=== PATIENT | female | born 1930 | race Caucasian/White ===

== ENCOUNTER 2016-09-20 05:10 | Inpatient (IN) ==
[2016-09-20] MEDS ORDERED: ONDANSETRON 4 MG/2 ML VIAL IV STA (05:26)
[2016-09-20] MEDS ORDERED: NITROGLYCERIN 2% OINT 1 INCH/GM PACK TOP STA (05:26)
[2016-09-20] MEDS ORDERED: ENOXAPARIN 100 MG/ML SYRINGE SUBCUT STA (05:26)
[2016-09-20] MEDS ORDERED: ASPIRIN 325 MG TABLET PO STA (05:26)
[2016-09-20] MEDS ORDERED: SODIUM CHLORIDE 0.9% 500 ML IV STA (05:26)
--- NOTE | 2016-09-20 05:44 | Emergency Department Note ---
Piero Cesar Gwan, am scribing for, and in the presence of, Ricardo Canas MD 05:40. Missael Cesar Robert M, MD, personally performed the services described in this documentation, ascribed by Brian Harry in my presence, and it is both accurate and complete . Arrival - Arrival ED Nursing Triage Note: Patient to ED via EMS coming from home with c/o right sided CP that started around 0400. EMS reports patient has dementia and cannot disclose any additional s/s. Patient was given 324 ASA per family prior to EMS picking patient up. Patient had a fall 1 week ago and has bruising to right arm and right side of face. Mode of Arrival: Stretcher Limitations: No Limitations Source: Patient, Family, Old Records Reviewed, RN Notes Reviewed - History of Present Illness Onset (ago): hour(s) Consistency: constant Severity: moderate <Ricardo Canas - Last Filed: 09/20/16 05:56> <Thien Tamez - Last Filed: 09/20/16 07:45> - Arrival Chief Complaint: Chest Pain Stated Complaint: chest pain Time Seen by Provider: 09/20/16 05:26 - History of Present Illness HPI Narrative: Patient is a 86 y/o white female, with a hx of afib/CVA/CHF,who presents to the ED via EMS with a c/o right sided chest pain with an onset 0400 this morning. Her associated sxs have been SOB and clammy. Daughter noted that s/p onset of pt 's chest pain, she gave pt 4 ASA with some relief. EMS confirmed that pt has PHMx of dementia. Patient confirmed that her chest pain is located in the center of her chest. She denies any nausea or that her pain radiates to any other part of her body. Patient is followed by Dr. Anaya. Daughter continued to note that pt had a fall 1 week ago which resulted in bruising to her right arm and right side of her face. (Brian Harry) Patient is a 86 y/o white female, with a hx of afib/CVA/CHF,who presents to the ED via EMS with a c/o right sided chest pain with an onset 0400 this morning. Her associated sxs have been SOB and clammy. Daughter noted that s/p onset of pt 's chest pain, she gave pt 4 ASA with some relief. EMS confirmed that pt has PHMx of dementia. Patient confirmed that her chest pain is located in the center of her chest. She denies any nausea or that her pain radiates to any other part of her body. Patient is followed by Dr. Anaya. Daughter continued to note that pt had a fall 1 week ago which resulted in bruising to her right arm and right side of her face. (Ricardo Canas) Allergies/Adverse Reactions: Allergies Allergy/AdvReac Type Severity Reaction Status Date / Time codeine Allergy Unknown/Unable Verified 09/20/16 05:25 to obtain hydrocodone Allergy Unknown/Unable Verified 09/20/16 05:25 to obtain nalbuphine [From Nubain] Allergy Unknown/Unable Verified 09/20/16 05:25 to obtain pentazocine [From Talwin] Allergy Unknown/Unable Verified 09/20/16 05:25 to obtain Home Medications: Home Medications Medication Instructions Recorded Confirmed Type Citalopram [CeleXA] 20 mg PO BID 08/13/14 04/14/16 History Digoxin Tab [Lanoxin Tab] 0.125 mg PO DAILY 08/13/14 04/14/16 History Diltiazem Cd Cap [Cardizem Cd] 300 mg PO DAILY 08/13/14 04/14/16 History Donepezil [Aricept] 10 mg PO BEDTIME 08/13/14 04/14/16 History Furosemide Tab [Lasix Tab] 20 mg PO DAILY 08/13/14 04/14/16 History Isosorbide Mononitrate [Imdur] 60 mg PO DAILY 08/13/14 04/14/16 History Levothyroxine Tab [Synthroid Tab] 50 mcg PO DAILY 08/13/14 04/14/16 History Magnesium Chloride [Mag Delay] 64 mg PO TID 08/13/14 04/14/16 History Memantine [Namenda] 10 mg PO BID 08/13/14 04/14/16 History Metoprolol Succinate Xl [Toprol Xl] 50 mg PO DAILY 08/13/14 04/14/16 History Omeprazole [Prilosec] 20 mg PO DAILY 08/13/14 04/14/16 History Potassium Chloride Tab [K Dur] 20 meq PO DAILY 08/13/14 04/14/16 History Simvastatin [Zocor] 10 mg PO BEDTIME 08/13/14 04/14/16 History hydrALAZINE TAB [Apresoline Tab] 25 mg PO BID 08/13/14 04/14/16 History traZODone [Desyrel] 100 mg PO BEDTIME 08/13/14 04/14/16 History Warfarin [Coumadin] 3 mg PO DAILY 07/31/15 04/14/16 History Pantoprazole Tab [Protonix Tab] 40 mg PO DAILY #30 tablet 08/02/15 04/14/16 Rx Aspirin EC Tab 81 mg PO BEDTIME 10/27/15 04/14/16 History Review of System - Review of System 12 point system: reviewed and no additional remarkable complaints except as stated - Review of System Constitutional: Absent: chills, fever Eyes: Absent: discharge Head/Ears/Nose/Throat: Absent: earache Respiratory: Absent: cough Cardiovascular: Present: as per HPI, chest pain Gastrointestinal: Absent: abdominal pain, nausea, vomiting, diarrhea Genitourinary female: Absent: abnormal menses, dysuria Musculoskeletal: Absent: back pain, leg pain, neck pain Skin: Absent: rash, lesions Neurological: Absent: headache, weakness Psychiatric: Absent: anxiety, depression <Ricardo Canas - Last Filed: 09/20/16 05:56> Medical,Surgical,& Family Hx - Medical History Cardio: History of: Cardiac Dysrhythmia (AFIB), CHF, Hypertension, [place], Cardiovascular Problems (a-fib) Neurology: History of: Dementia Endocrine: History of: Dyslipidemia, Thyroid Disorder Gastrointestinal: History of: Diverticulitis/ Diverticulosis, GERD - Surgical History Neurologic Surgeries: Patient denies: Neurologic Surgery Abdominal Surgeries: Surgical HX of: Abdominal Surgery Reproductive Surgeries: Surgical HX of;: Hysterectomy Orthopedic Surgeries: Surgical HX of;: Orthopedic Surgery (bilateral knees) - Family History Family History: Reports;: Family Cancer (father-prostate), Family Diabetes ( mother) - Social History Smoking Status: Never smoker Frequency of Alcohol Use: None Type of Drug Use: None <Ricardo Canas - Last Filed: 09/20/16 05:56> Exam - General General appearance: alert, in no apparent distress - Head Head exam: Present: atraumatic, normocephalic - Eye Eye exam: Present: normal appearance, PERRL, EOMI - ENT ENT exam: Present: normal oropharynx, mucous membranes moist, TM's normal bilaterally, normal external ear exam - Neck Neck exam: Present: full ROM, trachea midline. Absent: tenderness - Chest Chest inspection: Present: symmetric chest wall rise. Absent: tenderness - Respiratory Respiratory exam: Present: normal lung sounds bilaterally. Absent: respiratory distress - Cardiovascular Cardiovascular exam: Present: bradycardia. Absent: regular rate - Abdominal Exam Abdominal exam: Present: soft, normal bowel sounds. Absent: distention, tenderness - Extremities Exam Extremities exam: Present: full ROM. Absent: tenderness - Back Exam Back exam: Present: full ROM. Absent: tenderness - Neurological Exam Neurological exam: Present: alert, oriented X3, CN II-XII intact. Absent: motor sensory deficit - Psychiatric Psychiatric exam: Present: normal affect, normal mood - Skin Skin exam: Present: warm, dry, intact, normal color <Ricardo Canas - Last Filed: 09/20/16 05:56> Vital Signs: Vital Signs Temperature 98.4 F 09/20/16 05:13 Pulse Rate 50 L 09/20/16 05:13 Respiratory Rate 20 09/20/16 05:46 Blood Pressure 139/109 09/20/16 05:13 O2 Sat by Pulse Oximetry 96 09/20/16 05:13 Course - Reevaluation(s) Time: 05:56 <Ricardo Canas - Last Filed: 09/20/16 05:56> <Thien Tamez - Last Filed: 09/20/16 07:45> Course Narrative: Patient discussed with Dr. Connor and the hospitalist. (Thien Tamez) - Reevaluation(s) Reevaluation #1: The patient was signed out to Dr. Ann Tamez in stable condition. (Ricardo Canas) Results - Labs CBC & BMP: 09/20/16 05:21 09/20/16 05:21 Lab Results: I have reviewed the patients labs - EKG EKG results: interpreted by RADHA (Atrial fibrillation with a right bundle branch block) - Diagnostic Findings Procedure: Chest x-ray: report reviewed by me (Stable cardiomegaly) <Thien Tamez - Last Filed: 09/20/16 07:45> Disposition <Ricardo Canas - Last Filed: 09/20/16 05:56> Case discussed with: patient, patient's family <Thien Tamez - Last Filed: 09/20/16 07:45> Clinical Impression: Chest pain, Bradycardia, Dementia Disposition: Still a Patient Condition: Guarded Additional Instructions: Admit to the hospitalist for cardiac monitoring. We will hold her beta-patrizia.
[2016-09-20 05:50] LABS: Basophils % 0.6 % (0.0-0.8); Eosinophils # 0.1 10*3/uL (0.0-0.87); Eosinophils % 1.9 % (0.00-10.9); Hematocrit 35.3 VOL% (35.7-47.0); Hemoglobin 11.2 GM/DL (12.0-16.0); Immature Granulocytes % 0.4 %; Immature Granulocytes Absolute 0.02 #; Lymphocytes # 1.3 10*3/uL (1.4-4.0); Lymphocytes % 28.7 % (21.3-54.2); Mean Corpuscular HGB Conc 31.7 GM/DL (32-36); Mean Corpuscular Hemoglobin 29 PG (27-34); Mean Corpuscular Volume 91.7 FL (87-102); Mean Platelet Volume 9.8 FL (9.6-12.0); Monocytes # 0.5 10*3/uL (0.11-0.8); Monocytes % 10.1 % (1.7-12.7); Neutrophils # 2.7 10*3/uL (1.4-7.4); Neutrophils % 58.3 % (38.7-73.9); Platelet Count 171 T/CUMM (130-400); Red Blood Count 3.85 MC/CUMM (3.8-5.5); Red Cell Distribution Width 15.9 % (9.3-17.3); White Blood Count 4.6 T/CUMM (4-12)
[2016-09-20] MEDS ORDERED: ONDANSETRON 4 MG/2 ML VIAL ONE (05:58)
[2016-09-20] MEDS ORDERED: ENOXAPARIN 60 MG/0.6 ML SYRINGE ONE (05:58)
[2016-09-20] MEDS ORDERED: NITROGLYCERIN 2% OINT 1 INCH/GM PACK TOP ONE (05:58)
[2016-09-20 06:04] LABS: Partial Thromboplastin Time 38.5 SECS (0-40)
[2016-09-20 06:08] LABS: INR 2.6
[2016-09-20 06:16] LABS: PT Patient Result 29.6 SECS
[2016-09-20 06:22] LABS: Apearance,Urine CLEAR (Clear); Bilirubin,Urine Negative (Negative); Blood, Urine Small mg/dL (Negative); Glucose,Urine (UA) Negative (Negative); Ketones,Urine Negative (Negative); Mucus,Urine Occasional /LPF (Occasional); Nitrite,Urine Negative (Negative); Protein,Urine Negative; RBC,Urine 2 /HPF (0-4); Squamous Epithelial Cell,Urine Occasional /HPF (0-10); Urine Color Straw (Yellow); Urine Specific Gravity 1.008 (1.001-1.035); Urine Urobilinogen < 2.0 EU/DL (0.2-1.0); WBC,Urine <1 /HPF (0-6)
[2016-09-20 06:27] LABS: Albumin 3.4 G/DL (3.4-5.0); Bilirubin,Total 0.5 MG/DL (0.2-1.0); Calcium 9.1 MG/DL (8.5-10.1); Magnesium 1.9 MG/DL (1.8-2.4); Osmolality,Calculated 281.1 MOS/KG (273-304); Potassium 3.5 MMOL/L (3.5-5.1); Total Protein 6.2 G/DL (6.4-8.3)
--- NOTE | 2016-09-20 07:20 | XRay Report ---
History: Chest pain Date: 09/20/2016 Study: Chest x-ray AP portable Comparison exam: April 14, 2016 There is continued mild cardiomegaly. The mediastinal contours are unchanged. There is mild ectasia and tortuosity of the thoracic aorta. The pulmonary vasculature is not engorged. The lungs are clear for shallow inspiration. There is no gross pleural effusion. There is suspected osteopenia. Impression: Stable cardiomegaly. No adverse interval change compared to the previous study. No definite acute process PROCEDURE INTERPRETED AT [facility] DEPARTMENT OF RADIOLOGY Final Report Signed by: Dr. Gillian Duran
--- NOTE | 2016-09-20 08:11 | Hospitalist History & Physical ---
<Aston Abreu - Last Filed: 09/20/16 09:07> Assessment and Plan (1) Bradycardia Status: Acute Assessment and plan: Admit to telemetry. Cardiac monitoring. Hold metoprolol and digoxin. Current Visit: Yes (2) Chest pain Status: Acute Assessment and plan: Admit to telemetry. Serial troponins and ekgs. Obtain echo. BMP/CBC. CXR shows stable cardiomegaly. Supplemental O2 as needed. Current Visit: Yes (3) Dementia Status: Chronic Current Visit: Yes Qualifiers: Dementia type: Alzheimer's disease (4) Dyslipidemia Status: Chronic Assessment and plan: Lipid panel in the am. Current Visit: Yes (5) History of atrial fibrillation Status: Chronic Current Visit: Yes History of Present Illness Chief complaint: Chest pain History of present illness: Ms. Langston is a 86 year old white female with a history of A. fib, angina, myocardial infarction, hypothyroidism, and dyslipidemia that presented to the ED today for further evaluation of chest pain. Patient is accompanied by her daughter who is present at the bedside. Patient is a poor historian with dementia so daughter provides much of her history. Per the daughter, the patient woke up this morning around 4:00 complaining of chest pain. Pt.'s daughter states patient pointed to the middle of her chest. Pt is unable to differeniate between the pain being sharp or dull. They called 911 and pt was given four 81 mg ASA before EMS arrived. On arrival to ED, patient was found to be bradycardiac with heart rates in the 40s. Pt. takes Metoprolol and prn Digoxin at home. Chest pain has resolved now in the ED but pt's case has been discussed with Dr. Mckenzie and pt. will be admitted to the hospitalist program for further eval and treatment. Home Medications Medication Instructions Recorded Confirmed Type Citalopram [CeleXA] 20 mg PO BID 08/13/14 09/20/16 History Digoxin Tab [Lanoxin Tab] 0.125 mg PO DAILY 08/13/14 09/20/16 History Diltiazem Cd Cap [Cardizem Cd] 300 mg PO DAILY 08/13/14 09/20/16 History Furosemide Tab [Lasix Tab] 20 mg PO DAILY 08/13/14 09/20/16 History Isosorbide Mononitrate [Imdur] 60 mg PO DAILY 08/13/14 09/20/16 History Levothyroxine Tab [Synthroid Tab] 50 mcg PO DAILY 08/13/14 09/20/16 History Magnesium Chloride [Mag Delay] 64 mg PO TID 08/13/14 09/20/16 History Metoprolol Succinate Xl [Toprol Xl] 50 mg PO DAILY 08/13/14 09/20/16 History Omeprazole [Prilosec] 20 mg PO DAILY 08/13/14 09/20/16 History Potassium Chloride Tab [K Dur] 20 meq PO DAILY 08/13/14 09/20/16 History Simvastatin [Zocor] 10 mg PO BEDTIME 08/13/14 09/20/16 History hydrALAZINE TAB [Apresoline Tab] 25 mg PO BID 08/13/14 09/20/16 History traZODone [Desyrel] 100 mg PO BEDTIME 08/13/14 09/20/16 History Warfarin [Coumadin] 3 mg PO DAILY 07/31/15 09/20/16 History Pantoprazole Tab [Protonix Tab] 40 mg PO DAILY #30 tablet 08/02/15 09/20/16 Rx Aspirin EC Tab 81 mg PO BEDTIME 10/27/15 09/20/16 History Donepezil HCl [Aricept] 23 mg PO DAILY 09/20/16 09/20/16 History Memantine [Namenda] 10 mg PO BID 09/20/16 09/20/16 History Allergies Allergy/AdvReac Type Severity Reaction Status Date / Time codeine Allergy Unknown/Unable Verified 09/20/16 05:25 to obtain hydrocodone Allergy Unknown/Unable Verified 09/20/16 05:25 to obtain nalbuphine [From Nubain] Allergy Unknown/Unable Verified 09/20/16 05:25 to obtain pentazocine [From Talwin] Allergy Unknown/Unable Verified 09/20/16 05:25 to obtain Medical,Surgical,& Family Hx - Medical History Cardio: History of: Cardiac Dysrhythmia (AFIB), CHF, Hypertension, [place], Cardiovascular Problems (a-fib) Neurology: History of: Dementia Endocrine: History of: Dyslipidemia, Thyroid Disorder Gastrointestinal: History of: Diverticulitis/ Diverticulosis, GERD - Surgical History Neurologic Surgeries: Patient denies: Neurologic Surgery Abdominal Surgeries: Surgical HX of: Abdominal Surgery Reproductive Surgeries: Surgical HX of;: Hysterectomy Orthopedic Surgeries: Surgical HX of;: Orthopedic Surgery (bilateral knees) - Family History Family History: Reports;: Family Cancer (father-prostate), Family Diabetes ( mother) - Social History Smoking Status: Never smoker Frequency of Alcohol Use: None Type of Drug Use: None Lives With:: Children Functional capacity: independent ambulation - Constitutional Constitutional: Absent: chills, fever(s) - EENT Eyes: Present: loss of vision, requires corrective lense Ears: Present: decreased hearing. Absent: ear discharge Nose, mouth and throat: Absent: dysphagia, headache(s) - Cardiovascular Cardiovascular: Present: chest pain at rest, dyspnea on exertion, edema. Absent : lightheadedness - Respiratory Respiratory: Present: dyspnea on exertion. Absent: cough - Gastrointestinal Gastrointestinal: Absent: abdominal pain, nausea, vomiting - Genitourinary Genitourinary: Absent: dysuria, urinary frequency - Musculoskeletal Musculoskeletal: Present: joint swelling - Neurological Neurological: Present: confusion, disequilibrium, frequent falls - Psychiatric Psychiatric: Present: confusion, depression - Hematologic/Lymphatic Hematologic/Lymphatic: Present: easy bruising Exam - Constitutional Vitals: Period Temp Pulse Resp BP Sys/Romero Pulse Ox Last 24 Hr 98.4 F-98.4 F 50-50 14-20 139-139/105-109 96 General appearance: normal weight, no acute distress - Head Head exam: Present: normal inspection, normocephalic - Eye Eye exam: Present: EOMI. Absent: scleral icterus Pupils: Present: TERESA. Absent: fixed - ENT ENT exam: Present: normal exam - Neck Neck exam: Present: normal inspection. Absent: thyromegaly - Respiratory Respiratory exam: Present: clear to auscultation bilaterally. Absent: wheezes - Cardiovascular Cardiovascular exam: Present: bradycardia - GI/Abdominal GI/Abdominal exam: Present: normal bowel sounds, soft. Absent: tenderness - Extremities Exam Extremities exam: Present: normal capillary refill, full ROM, edema - Neurological Exam Neurological exam: Present: alert, oriented X3, other (pt does have dementia) - Psychiatric Psychiatric exam: Present: normal affect, normal mood - Skin Skin exam: Present: normal color, warm, dry Results - Labs CBC & BMP: 09/20/16 05:21 09/20/16 05:21 Lab Results: I have reviewed the past 24 hour labs <Rashida Mckenzie Last Filed: 09/20/16 11:53> Assessment and Plan (1) Bradycardia Status: Acute Current Visit: Yes (2) Chest pain Status: Acute Current Visit: Yes (3) Dementia Status: Chronic Assessment and plan: Need a correct list of her medications. Current Visit: Yes Qualifiers: Dementia type: Alzheimer's disease (4) Afib Status: Chronic Assessment and plan: Hold digoxin and metoprolol due to bradycardia Current Visit: No History of Present Illness History of present illness: Patient seen and examined. History and physical reviewed and edited. CODE STATUS was discussed with patient's daughter and she wants her to be a DNR. Daughter is not interested in her mother receiving a pacemaker at this time. Her chest pain sounds atypical and most likely secondary to GERD. Patient has advanced dementia. Medical,Surgical,& Family Hx - Social History Marital Status: Exam - Constitutional Vitals: Period Temp Pulse Resp BP Sys/Romero Pulse Ox Last 24 Hr 98.4 F-98.7 F 50-64 14-20 139-152/71-109 93-97 Results - Labs CBC & BMP: 09/20/16 05:21 09/20/16 05:21 - EKG EKG shows: atrial fibrillation (With intraventricular conduction delay) - Diagnostic Findings Procedure: Chest x-ray: report reviewed by me (Nothing acute)
[2016-09-20] MEDS ORDERED: MAGNESIUM SULF RIDER 2 GM in PREMIX 1 EACH IV PRN (09:36)
[2016-09-20] MEDS ORDERED: BISACODYL 5 MG TABLET PO PRN (09:36)
[2016-09-20] MEDS ORDERED: ONDANSETRON 4 MG/2 ML VIAL IV PRN (09:36)
[2016-09-20] MEDS ORDERED: ENOXAPARIN 40 MG/0.4 ML SYRINGE SUBCUT SCH (09:36)
[2016-09-20] MEDS ORDERED: POTASSIUM CHLORIDE 20 MEQ TABLET PO PRN (09:36)
[2016-09-20] MEDS ORDERED: ZALEPLON 5 MG CAPSULE PO PRN (09:36)
[2016-09-20] MEDS ORDERED: MAGNESIUM SULF RIDER 4 GM in PREMIX 1 EACH IV PRN (09:36)
[2016-09-20] MEDS ORDERED: MAGNESIUM HYDROXIDE SUSP 30 ML UDCUP PO PRN (09:36)
[2016-09-20] MEDS ORDERED: SODIUM CHLORIDE 0.45% 1,000 ML IV SCH (09:36)
[2016-09-20] MEDS: ASPIRIN EC 81 MG TABLET PO SCH ×2 (09:39→21:14)
--- NOTE | 2016-09-20 09:40 | EKG Report ---
Stationary ECG Study [facility] ER Test Date: 09/20/2016 5:25:28 AM Pat Name: DEVYN GONZALEZ Department: Room: 289 Gender: F Cashier General: EVA : 1930 Requested by: Ricardo Canas Order Number: [id number] Reading MD: WILLIAM JAVIER Intervals [place] Rate: 58 P: 999 HI: 0 QRS: 13 QRSD: 188 T: 23 QT: 520 QTc: 517 Interpretive Statements ATRIAL FIBRILLATION RIGHT BUNDLE BRANCH BLOCK Electronically Signed On 09-20-16 16:29:43 CDT by WILLIAM JAVIER [email or web address]
--- NOTE | 2016-09-20 09:50 | EKG Report ---
Stationary ECG Study [facility] Test Date: 09/20/2016 9:50:33 AM Pat Name: DEVYN GONZALEZ Department: Room: 289 Gender: F Load Blocker: ROSS : 1930 Requested by: Rashida Roach Order Number: [id number] Reading MD: LINDA WALDEN Intervals [place] Rate: 51 P: 999 NV: 0 QRS: 197 QRSD: 186 T: 28 QT: 513 QTc: 490 Interpretive Statements ATRIAL FIBRILLATION WITH SLOW VENTRICULAR RESPONSE INDETERMINATE AXIS RIGHT BUNDLE BRANCH BLOCK Electronically Signed On 09-22-16 15:25:22 CDT by LINDA WALDEN [email or web address]
--- NOTE | 2016-09-20 12:47 | EKG Report ---
Stationary ECG Study [facility] Test Date: 09/20/2016 12:47:34 PM Pat Name: DEVYN GONZALEZ Department: Room: 289 Gender: F Utility Worker: : 1930 Requested by: Rashida Roach Order Number: [id number] Reading MD: LINDA WALDEN Intervals [place] Rate: 48 P: 999 CO: 0 QRS: 187 QRSD: 185 T: 70 QT: 519 QTc: 487 Interpretive Statements ATRIAL FIBRILLATION WITH SLOW VENTRICULAR RESPONSE MARKED RIGHT AXIS DEVIATION RIGHT BUNDLE BRANCH BLOCK Electronically Signed On 09-22-16 15:31:57 CDT by LINDA WALDEN [email or web address]
[2016-09-20] MEDS: LOSARTAN 50 MG TABLET PO SCH (14:02)
[2016-09-20] MEDS: MEMANTINE 10 MG TABLET PO SCH ×2 (14:02→21:15)
[2016-09-20] MEDS: LEVOTHYROXINE 50 MCG TABLET PO SCH (14:03)
[2016-09-20] MEDS: FAMOTIDINE 20 MG TABLET PO SCH ×2 (14:03→21:15)
--- NOTE | 2016-09-20 15:45 | ECHO Report ---
Mell Langston Exam Date: 09/20/2016 10:15 Referring Physician: Technologist: Annmarie Lai Age: 86 Ht (in): 65 Wt (lb): 140 Gender: F Exam [facility]: [facility] Echo Indications: chest pain, sob BP: 152 / 88 HR: 64 Rhythm: A fib Technical Quality: IMPRESSIONS There is mild concentric left ventricular hypertrophy ejection fraction 60-65%. Diastolic parameters are equivocal the patient is in atrial fibrillation. There is no regional wall motion abnormality. Mild aortic valve regurgitation. Tricuspid regurgitation velocities suggest a RVSP of 59 mmHg plus the right atrial pressure. MModerate mitral valve regurgitation that is central. There is moderate posterior mitral annular calcification with no demonstrable mitral stenosis Biatrial enlargement MEASUREMENTS (Male / Female) Normal Values 2D ECHO LV Diastolic Diameter PLAX 3.2 cm 4.2 - 5.9 / 3.9 - 5.3 cm LV Systolic Diameter PLAX 2.1 cm LV Fractional Shortening PLAX 34.4 % IVS Diastolic Thickness 1.5 cm 0.6 - 1.0 / 0.6 - 0.9 cm LVPW Diastolic Thickness 1.5 cm 0.6 - 1.0 / 0.6 - 0.9 cm RV Internal Dim ED PLAX 3.0 cm Aortic Root Diameter 2.7 cm LA Systolic Diameter LX 3.5 cm 3.0 - 4.0 / 2.7 - 3.8 cm DOPPLER TR Peak Velocity 384.0 cm/s TR Peak Gradient 59.0 mmHg FINDINGS Left Ventricle There is mild concentric left ventricular hypertrophy ejection fraction 60-65%. Diastolic parameters are equivocal the patient is in atrial fibrillation. There is no regional wall motion abnormality. Right Ventricle Normal right ventricular size. Right Atrium Moderately increased right atrial size. Left Atrium Moderately increased left atrial size. Mitral Valve Mild mitral valve sclerosis. Moderate mitral valve regurgitation that is central. There is moderate posterior mitral annular calcification with no demonstrable mitral stenosis Aortic Valve Moderate aortic valve calcification. Mild aortic valve regurgitation. The pressure halftime is greater than 670 msec. Tricuspid Valve Morphologically normal tricuspid valve. Moderate tricuspid valve regurgitation. Tricuspid regurgitation velocities suggest a RVSP of 59 mmHg plus the right atrial pressure. Pulmonic Valve Morphologically normal pulmonic valve. Trace pulmonary valve regurgitation. Pericardium No pericardial effusion. Aorta Normal size aortic root and proximal ascending aorta. Alisson Anaya (Electronically Signed) Final Date: 20 September 2016 15:44
[2016-09-20] MEDS: WARFARIN 3 MG TABLET PO SCH (18:21)
[2016-09-20] MEDS: ATORVASTATIN 20 MG TABLET PO SCH (21:15)
[2016-09-20] MEDS: SIMVASTATIN 10 MG TABLET PO SCH (21:15)
[2016-09-20] MEDS: traZODone 50 MG TABLET PO SCH (21:15)
[2016-09-20] MEDS: hydrALAZINE 25 MG TABLET PO SCH (21:15)
[2016-09-21] MEDS: LABETALOL 20 MG/4 ML SYRINGE IV PRN ×2 (00:36→04:29)
--- NOTE | 2016-09-21 04:21 | EKG Report ---
Stationary ECG Study [facility] Test Date: 09/20/2016 3:09:25 PM Pat Name: DEVYN GONZALEZ Department: Room: 289 Gender: F Set Up Operator: : 1930 Requested by: Rashida Roach Order Number: [id number] Reading MD: LINDA WALDEN Intervals [place] Rate: 57 P: 999 [place]: 0 QRS: 185 QRSD: 182 T: 29 QT: 478 QTc: 472 Interpretive Statements ATRIAL FIBRILLATION MARKED RIGHT AXIS DEVIATION RIGHT BUNDLE BRANCH BLOCK Electronically Signed On 09-22-16 16:05:52 CDT by LINDA WALDEN [email or web address]
[2016-09-21 08:39] LABS: Risk Ratio 2.67; VLDL CHOLESTEROL 21.4 MG/DL
[2016-09-21] MEDS: CITALOPRAM 20 MG TABLET PO SCH (09:00)
[2016-09-21] MEDS: ISOSORBIDE MONONITRATE 60 MG TABLET PO SCH (09:00)
[2016-09-21] MEDS: MEMANTINE 10 MG TABLET PO SCH ×2 (09:00→20:06)
[2016-09-21] MEDS: hydrALAZINE 25 MG TABLET PO SCH ×2 (09:00→20:06)
[2016-09-21] MEDS ORDERED: FUROSEMIDE 20 MG TABLET PO SCH (09:00)
[2016-09-21] MEDS: FAMOTIDINE 20 MG TABLET PO SCH ×2 (09:00→20:06)
[2016-09-21] MEDS: LEVOTHYROXINE 50 MCG TABLET PO SCH (09:00)
[2016-09-21] MEDS ORDERED: ARICEPT 23 MG PO SCH (09:00)
[2016-09-21] MEDS: ASPIRIN EC 81 MG TABLET PO SCH ×2 (09:00→20:06)
[2016-09-21] MEDS: LOSARTAN 50 MG TABLET PO SCH (09:00)
[2016-09-21] MEDS ORDERED: ALPRAZolam 0.5 MG TABLET PO ONE (12:18)
--- NOTE | 2016-09-21 12:28 | Cardiology Consult Note ---
Assessment and Plan - Time spent with patient Time spent with patient: Greater than 30 minutes (exam, chart review, discussion with family and documentation) (1) Falls frequently Status: Acute Assessment and plan: This just started about 1 week ago but she has fallen 2 times in the last week. No clear syncope but I am very suspicious. AV ebony agents have been held. Current Visit: Yes (2) Afib Status: Chronic Assessment and plan: probably will eventually require PPM. 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 Current Visit: No Qualifiers: Atrial fibrillation type: permanent Qualified Code(s): I48.2 - Chronic atrial fibrillation (3) Dementia Status: Chronic Current Visit: Yes Qualifiers: Dementia type: Alzheimer's disease (4) Bradycardia Status: Acute Assessment and plan: will likely need PPM Current Visit: Yes (5) Dyslipidemia Status: Chronic Current Visit: Yes History of Present Illness - Data of Consult Patient: known to practice within the last 3 years Consult date: 09/21/16 Requesting Physician: Rashida Mckenzie - Consult Narrative Reason for consult: Bradycardia History of present illness: Ms. Langston is a 86 year old female well known to me. She has a history of mild cardiomyopathy she also has a history of persistent or permanent atrial fibrillation. Now she has progressive dementia. She is admitted to the hospitalist service her digoxin and metoprolol were held because of bradycardia last night she received an IV dose of labetalol and then during the night she had a heart rate down into the 30s. The patient is unable to give any meaningful history because of her advanced dementia. Her daughter is at the bedside and states that a few days ago and her sister's house the patient fell. Initially her daughter states that it was witnessed but did not tell me that her sister was only able to tell me that she "heard her fall." She went into the room and she was awake at that time on the floor. She is also fallen another time when she "just sat down" between the chair and the garbage can. This daughter states that she did not have syncope at that time. The patient has no recollection of either 1 of these episodes. She has obvious large area of ecchymosis on the right frontal region with ecchymosis extending down into the lateral aspect of her eye into her cheekbone. The patient is not oriented but is alert and eating lunch when I saw her. She is scheduled to go for an MRI at this time. I discussed with her briefly about the possibility of a pacemaker and she seemed to be acceptable without by saying "whatever you need to do." CC: Rashida Mckenzie MD - Home Medications and Allergies Home Medications: Home Medications Medication Instructions Recorded Confirmed Type Citalopram [CeleXA] 20 mg PO BID 08/13/14 09/20/16 History Digoxin Tab [Lanoxin Tab] 0.125 mg PO DAILY 08/13/14 09/20/16 History Diltiazem Cd Cap [Cardizem Cd] 300 mg PO DAILY 08/13/14 09/20/16 History Furosemide Tab [Lasix Tab] 20 mg PO DAILY 08/13/14 09/20/16 History Isosorbide Mononitrate [Imdur] 60 mg PO DAILY 08/13/14 09/20/16 History Levothyroxine Tab [Synthroid Tab] 50 mcg PO DAILY 08/13/14 09/20/16 History Magnesium Chloride [Mag Delay] 64 mg PO TID 08/13/14 09/20/16 History Metoprolol Succinate Xl [Toprol Xl] 50 mg PO DAILY 08/13/14 09/20/16 History Omeprazole [Prilosec] 20 mg PO DAILY 08/13/14 09/20/16 History Potassium Chloride Tab [K Dur] 20 meq PO DAILY 08/13/14 09/20/16 History Simvastatin [Zocor] 10 mg PO BEDTIME 08/13/14 09/20/16 History hydrALAZINE TAB [Apresoline Tab] 25 mg PO BID 08/13/14 09/20/16 History traZODone [Desyrel] 100 mg PO BEDTIME 08/13/14 09/20/16 History Warfarin [Coumadin] 3 mg PO DAILY 07/31/15 09/20/16 History Pantoprazole Tab [Protonix Tab] 40 mg PO DAILY #30 tablet 08/02/15 09/20/16 Rx Aspirin EC Tab 81 mg PO BEDTIME 10/27/15 09/20/16 History Donepezil HCl [Aricept] 23 mg PO DAILY 09/20/16 09/20/16 History Memantine [Namenda] 10 mg PO BID 09/20/16 09/20/16 History Allergies/Adverse Reactions: Allergies Allergy/AdvReac Type Severity Reaction Status Date / Time codeine Allergy Unknown/Unable Verified 09/20/16 05:25 to obtain hydrocodone Allergy Unknown/Unable Verified 09/20/16 05:25 to obtain nalbuphine [From Nubain] Allergy Unknown/Unable Verified 09/20/16 05:25 to obtain pentazocine [From Talwin] Allergy Unknown/Unable Verified 09/20/16 05:25 to obtain ROS unobtainable: due to dementia Medical,Surgical,& Family Hx - Medical History Cardio: History of: Cardiac Dysrhythmia (AFIB, permanent), Hypertension, [place], Cardiovascular Problems (a-fib) Neurology: History of: Dementia Endocrine: History of: Dyslipidemia, Thyroid Disorder Gastrointestinal: History of: Diverticulitis/ Diverticulosis, GERD - Surgical History Neurologic Surgeries: Patient denies: Neurologic Surgery Abdominal Surgeries: Surgical HX of: Abdominal Surgery Reproductive Surgeries: Surgical HX of;: Hysterectomy Orthopedic Surgeries: Surgical HX of;: Orthopedic Surgery (bilateral knees) - Family History Family History: Reports;: Family Cancer (father-prostate), Family Diabetes ( mother) - Social History Smoking Status: Never smoker Frequency of Alcohol Use: None Type of Drug Use: None Marital Status: Lives With:: Children Functional capacity: independent ambulation Physical Examination Vital Signs Temp Pulse Resp BP Pulse Ox 98.4 F 50 L 14 139/105 96 09/20/16 05:13 09/20/16 05:13 09/20/16 05:13 09/20/16 05:13 09/20/16 05:13 General: Present: Appears Well, Other (She is thin and frail) HEENT: Present: Other (ecchymosis on the right frontal/parietal region that tracts down over the side of her face/head) Neck: Present: Supple Neck Cardiac: Present: Irregularly Regular, S1/S2 Lungs: Present: Normal Exam Neuro: Present: Cranial Nerve 2-12 Intact, Motor Function Intact Abdomen: Present: Soft, Active Bowel Sounds, No Masses, No Pulsations/Bruits Skin: Present: Bruising Musculoskeletal: Present: No Fluid Collection, No Pain, Normal Range of Motion Gait: Present: Normal Gait Extremities: Absent: Edema Result/EKG - Labs CBC & BMP: 09/20/16 05:21 09/20/16 05:21 Labs: Laboratory Results - last 24 hr 09/20/16 09/20/16 09/21/16 12:49 15:55 07:31 Troponin I < 0.015 < 0.015 Triglycerides 107 Cholesterol 147 LDL Cholesterol 81.0 VLDL Cholesterol 21.4 HDL Cholesterol 55 Heart Disease Risk Ratio 2.67 - EKG EKG results: interpreted by me EKG shows: atrial fibrillation (strips also reviewed)
--- NOTE | 2016-09-21 13:49 | Magnetic Resonance Report ---
MRI brain without contrast Indication: Ataxia Comparison: None available Technique: Axial sagittal and coronal imaging of the brain is performed without contrast. T1, T2, FLAIR and diffusion weighted sequences are performed. Findings: No evidence of restricted diffusion seen. No evidence of intracranial hemorrhage, mass, mass effect or midline shift is seen. There is severe diffuse cerebral atrophy. There are areas of white matter T2 signal hyperintensity in both cerebral hemispheres, mostly periventricular in location likely related to chronic microvascular changes. Remaining brain parenchyma has normal signal and differentiation. The ventricles and cisterns are appropriate in caliber. Posterior fossa, mid brain and pituitary gland appear within normal limits. No evidence of cranial or skull base abnormality seen. Impression: No evidence of acute infarct or acute process demonstrated. PROCEDURE INTERPRETED AT [facility] DEPARTMENT OF RADIOLOGY Final Report Signed by: Dr. Luis Antonio Solis
--- NOTE | 2016-09-21 16:43 | Hospitalist Progress Note ---
Assessment and Plan (1) Bradycardia Status: Acute Assessment and plan: may need pacer. will monitor for now Current Visit: Yes (2) Chest pain Status: Acute Assessment and plan: serial troponins negative Current Visit: Yes (3) Dementia Status: Chronic Assessment and plan: cont namenda and aricept Current Visit: Yes Qualifiers: Dementia type: Alzheimer's disease (4) Afib Status: Chronic Assessment and plan: monitor for now, dig and dilt on hold Current Visit: No Qualifiers: Atrial fibrillation type: permanent Qualified Code(s): I48.2 - Chronic atrial fibrillation Hospitalist: Subjective Interval history: tachy/bruce. Dr. Anaya discussed with about pacer. Exam - Constitutional Vitals: Period Temp Pulse Resp BP Sys/Romero Pulse Ox Last 24 Hr 96.6 F-97.9 F 63-99 16-18 116-178/63-107 93-98 Exam: Heart Rate-[tachy] Lungs-[CTAB] GI-[+bs soft, NT] Ext-[no edema] Neuro [Motor 5/5], agitated and demented psych agitated mood and affect] General [no acute distress] Results - Labs CBC & BMP: 09/20/16 05:21 09/20/16 05:21 Lab Results: I have reviewed the past 24 hour labs - Diagnostic Findings Procedure: MRI: report reviewed by me (no acute infarct )
[2016-09-21 17:10] LABS: Free T4 (Free Thyroxine) 1.17 NG/DL (0.76-1.46); Thyroid Stimulating Hormone 2.56 uIU/ml (0.358-3.74)
[2016-09-21] MEDS: WARFARIN 3 MG TABLET PO SCH (17:43)
[2016-09-21] MEDS: ATORVASTATIN 20 MG TABLET PO SCH (20:06)
[2016-09-21] MEDS: traZODone 50 MG TABLET PO SCH (20:06)
[2016-09-21] MEDS: SIMVASTATIN 10 MG TABLET PO SCH (20:06)
[2016-09-22 05:33] LABS: Basophils % 0.4 % (0.0-0.8); Eosinophils # 0.1 10*3/uL (0.0-0.87); Eosinophils % 0.9 % (0.00-10.9); Hematocrit 33.5 VOL% (35.7-47.0); Hemoglobin 10.7 GM/DL (12.0-16.0); Immature Granulocytes % 0.4 %; Immature Granulocytes Absolute 0.04 #; Lymphocytes # 1.3 10*3/uL (1.4-4.0); Lymphocytes % 14.9 % (21.3-54.2); Mean Corpuscular HGB Conc 31.9 GM/DL (32-36); Mean Corpuscular Hemoglobin 29 PG (27-34); Mean Corpuscular Volume 90.3 FL (87-102); Monocytes # 0.9 10*3/uL (0.11-0.8); Monocytes % 9.6 % (1.7-12.7); Neutrophils # 6.7 10*3/uL (1.4-7.4); Neutrophils % 73.8 % (38.7-73.9); Platelet Count 171 T/CUMM (130-400); Red Blood Count 3.71 MC/CUMM (3.8-5.5); Red Cell Distribution Width 15.6 % (9.3-17.3)
[2016-09-22 05:48] LABS: PT Patient Result 33.8 SECS
[2016-09-22 06:07] LABS: Calcium 8.7 MG/DL (8.5-10.1); Magnesium 1.8 MG/DL (1.8-2.4); Osmolality,Calculated 277.4 MOS/KG (273-304); Potassium 3.8 MMOL/L (3.5-5.1)
--- NOTE | 2016-09-22 07:34 | EKG Report ---
Stationary ECG Study [facility] Test Date: 09/22/2016 7:33:58 AM Pat Name: DEVYN GONZALEZ Department: Room: 289 Gender: F Processing Mgr: ROSS : 1930 Requested by: Yonathan Rivero Order Number: [id number] Reading MD: JAZMINE VIVAR Intervals [place] Rate: 86 P: 999 TX: 0 QRS: 240 QRSD: 168 T: 74 QT: 429 QTc: 472 Interpretive Statements ATRIAL FIBRILLATION INDETERMINATE AXIS RIGHT BUNDLE BRANCH BLOCK AND POSSIBLE RIGHT VENTRICULAR HYPERTROPHY Electronically Signed On 09-23-16 08:08:34 CDT by JAZMINE VIVAR [email or web address]
[2016-09-22] MEDS: hydrALAZINE 25 MG TABLET PO SCH ×2 (09:24→21:28)
[2016-09-22] MEDS: LOSARTAN 50 MG TABLET PO SCH (09:24)
[2016-09-22] MEDS: CITALOPRAM 20 MG TABLET PO SCH (09:24)
[2016-09-22] MEDS: ISOSORBIDE MONONITRATE 60 MG TABLET PO SCH (09:24)
[2016-09-22] MEDS: LEVOTHYROXINE 50 MCG TABLET PO SCH (09:25)
[2016-09-22] MEDS: MEMANTINE 10 MG TABLET PO SCH ×2 (09:25→21:23)
[2016-09-22] MEDS: FAMOTIDINE 20 MG TABLET PO SCH ×2 (09:25→21:23)
[2016-09-22] MEDS ORDERED: PIPERACILLIN/TAZOBACTAM 3,375 MG in SODIUM CHLORIDE 0.9% 100 ML IV SCH (10:30)
--- NOTE | 2016-09-22 10:39 | Cardiology Progress Note ---
<Natalie Marques - Last Filed: 09/22/16 10:09> Assessment and Plan (1) Bradycardia Status: Resolved Assessment and plan: SEE PLAN OF CARE LISTED BELOW. Current Visit: Yes (2) Falls frequently Status: Acute Assessment and plan: SEE PLAN OF CARE LISTED BELOW. Current Visit: Yes (3) Dementia Status: Chronic Assessment and plan: SEE PLAN OF CARE LISTED BELOW. Current Visit: Yes Qualifiers: Dementia type: Alzheimer's disease (4) Dyslipidemia Status: Chronic Assessment and plan: SEE PLAN OF CARE LISTED BELOW. Current Visit: Yes (5) Afib Status: Chronic Assessment and plan: SEE PLAN OF CARE LISTED BELOW. Current Visit: No Qualifiers: Atrial fibrillation type: permanent Qualified Code(s): I48.2 - Chronic atrial fibrillation Cardiology - PN: Subj Interval history: [place]ogs[place] Hand: Dr. Anaya SUMMARY - Mrs. Langston, 86 year old female with history of mild cardiomyopathy, persistent or permanent atrial fibrillation and progressive dementia. She is admitted to the hospitalist service. Her digoxin and metoprolol were held upon admission because of bradycardia. However, she received an IV dose of labetalol and then later that night she had a heart rate down into the 30s. Cardiology was consulted to further evaluate patient's bradycardia. September UPDATE - Patient was seen and examined on the telemetry unit. She has done reasonably well overnight. Digoxin and metoprolol were held yesterday. Patient has had no further bradycardic episodes. However, with activity she has experienced RVR. Her telemetry has been reviewed, it appears that she had an episode of RVR with heart rates in the 140s last night. At this point, I will further discuss with Dr. 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 I will await his further recommendations. ASSESSMENT/PLAN: 1. BRADYCARDIA - This is most likely secondary to the IV dose of labetalol that she received as patient's heart rates are now ranging in the 80s and 90s after digoxin and metoprolol were put on hold. However, she does have RVR with activity. After reviewing her telemetry, it appears that she had an episode of RVR with heart rates in the 140s last night. At this point, I will further discuss with Dr. 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 I will await his recommendations. 2. ATRIAL FIBRILLATION - Remains in atrial fibrillation, now rate controlled. Continue warfarin for anticoagulation. INR today 3.0. Daily INR. 3. DYSLIPIDEMIA - Continue current plan of care with lipid lowering agent. 4. DEMENTIA - Continue current plan of care. 5. FALLS FREQUENTLY - She has fallen 2 times in the last week. Exam (Progress Note) - Constitutional Vitals: Period Temp Pulse Resp BP Sys/Romero Pulse Ox Last 24 Hr 97.6 F-100.7 F 82-99 16-20 132-148/78-95 93-98 Exam: General: Appears well with no apparent distress. Pleasant and cooperative. Thin and frail. HEENT: PERRL, normocephalic, atraumatic. Mucous membranes moist. No jaundice noted. Conjunctiva moist and clear, sclerae anicteric Neck: No JVD/HJR, no thyromegaly or lymphadenopathy noted. No carotid bruit appreciated Cardiac: Irregular rhythm, rate controlled. No murmur rub or gallop. Lungs: Clear to auscultation without accessory muscle use to assist the respiratory pattern. Not requiring oxygen. Abdomen: Soft, bowel sounds normoactive. Nontender and nondistended. No abdominal bruit or thrill noted. No masses noted. Extremities: No clubbing, cyanosis noted. No edema noted. Capillary refill less than 3 seconds. Skin: Large bruise noted to frontal/parietal region that tracts down over the side of her face. Neuro: Awake, alert and oriented 3. Moves all extremities well without hemiparesis or paralysis. No essential tremor is appreciated. Result/EKG - Labs CBC & BMP: 09/22/16 05:07 09/22/16 05:07 Lab Results: I have reviewed the past 24 hour labs Labs: Laboratory Results - last 24 hr 09/21/16 09/22/16 09/22/16 07:30 05:07 05:07 WBC 9.0 D RBC 3.71 L Hgb 10.7 L Hct 33.5 L MCV 90.3 MCH 29 MCHC 31.9 L RDW 15.6 Plt Count 171 MPV 10.0 Neut % (Auto) 73.8 Lymph % (Auto) 14.9 L [place] % (Auto) 9.6 Eos % (Auto) 0.9 Baso % (Auto) 0.4 Neut # (Auto) 6.7 Lymph # (Auto) 1.3 L [place] # (Auto) 0.9 H Eos # (Auto) 0.1 Baso # (Auto) 0.0 Immature Gran % 0.4 Nucleated RBC % 0.0 Immature Gran # 0.04 Nucleated RBCs # 0.00 INR 3.0 PT Patient/Control Mix 33.8 Sodium Potassium Chloride Carbon Dioxide Anion Gap BUN Creatinine GFR Calculation BUN/Creatinine Ratio Glucose Calculated Osmolality Calcium Magnesium Free T4 1.17 TSH 3rd Generation 2.560 09/22/16 05:07 WBC RBC Hgb Hct MCV MCH MCHC RDW Plt Count MPV Neut % (Auto) Lymph % (Auto) [place] % (Auto) Eos % (Auto) Baso % (Auto) Neut # (Auto) Lymph # (Auto) [place] # (Auto) Eos # (Auto) Baso # (Auto) Immature Gran % Nucleated RBC % Immature Gran # Nucleated RBCs # INR PT Patient/Control Mix Sodium 140 Potassium 3.8 Chloride 99 Carbon Dioxide 36 H Anion Gap 8.8 BUN 9 Creatinine 0.90 GFR Calculation 57 BUN/Creatinine Ratio 10.00 Glucose 94 Calculated Osmolality 277.4 Calcium 8.7 Magnesium 1.8 Free T4 TSH 3rd Generation <Alisson Anaya - Last Filed: 09/22/16 15:09> Assessment and Plan (1) Falls frequently Status: Acute Current Visit: Yes (2) Afib Status: Chronic Assessment and plan: Heart rate back up overnight now well controlled 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 Current Visit: No Qualifiers: Atrial fibrillation type: permanent Qualified Code(s): I48.2 - Chronic atrial fibrillation (3) Dementia Status: Chronic Current Visit: Yes Qualifiers: Dementia type: Alzheimer's disease (4) Bradycardia Status: Resolved Current Visit: Yes (5) Dyslipidemia Status: Chronic Current Visit: Yes Cardiology - PN: Subj Interval history: Ms. Langston had her AV ebony blockade agents held and her heart rate is increased. She also has fever and apparent cellulitis her right upper extremity for which she is receiving vancomycin. 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 She certainly may require pacemaker at some point but will hold for now especially to large infection clears. Exam (Progress Note) - Constitutional Vitals: Period Temp Pulse Resp BP Sys/Romero Pulse Ox Last 24 Hr 97.6 F-100.7 F 82-99 16-20 94-148/60-95 93-98 Exam: Right is much better. Result/EKG - Labs CBC & BMP: 09/22/16 05:07 09/22/16 05:07 Labs: Laboratory Results - last 24 hr 09/21/16 09/22/16 09/22/16 07:30 05:07 05:07 WBC 9.0 D RBC 3.71 L Hgb 10.7 L Hct 33.5 L MCV 90.3 MCH 29 MCHC 31.9 L RDW 15.6 Plt Count 171 MPV 10.0 Neut % (Auto) 73.8 Lymph % (Auto) 14.9 L [place] % (Auto) 9.6 Eos % (Auto) 0.9 Baso % (Auto) 0.4 Neut # (Auto) 6.7 Lymph # (Auto) 1.3 L [place] # (Auto) 0.9 H Eos # (Auto) 0.1 Baso # (Auto) 0.0 Immature Gran % 0.4 Nucleated RBC % 0.0 Immature Gran # 0.04 Nucleated RBCs # 0.00 INR 3.0 PT Patient/Control Mix 33.8 Sodium Potassium Chloride Carbon Dioxide Anion Gap BUN Creatinine GFR Calculation BUN/Creatinine Ratio Glucose Calculated Osmolality Calcium Magnesium Free T4 1.17 TSH 3rd Generation 2.560 09/22/16 05:07 WBC RBC Hgb Hct MCV MCH MCHC RDW Plt Count MPV Neut % (Auto) Lymph % (Auto) [place] % (Auto) Eos % (Auto) Baso % (Auto) Neut # (Auto) Lymph # (Auto) [place] # (Auto) Eos # (Auto) Baso # (Auto) Immature Gran % Nucleated RBC % Immature Gran # Nucleated RBCs # INR PT Patient/Control Mix Sodium 140 Potassium 3.8 Chloride 99 Carbon Dioxide 36 H Anion Gap 8.8 BUN 9 Creatinine 0.90 GFR Calculation 57 BUN/Creatinine Ratio 10.00 Glucose 94 Calculated Osmolality 277.4 Calcium 8.7 Magnesium 1.8 Free T4 TSH 3rd Generation
[2016-09-22] MEDS ORDERED: METOPROLOL TARTRATE 25 MG TABLET PO SCH (11:30)
--- NOTE | 2016-09-22 11:47 | Hospitalist Progress Note ---
Assessment and Plan (1) Bradycardia Status: Resolved Assessment and plan: Jonathan/Tachy, Hold coumadin, metoprolol 25 mg po bid Current Visit: Yes (2) Chest pain Status: Acute Assessment and plan: serial troponins negative Current Visit: Yes (3) Dementia Status: Chronic Assessment and plan: cont namenda and aricept Current Visit: Yes Qualifiers: Dementia type: Alzheimer's disease (4) Afib Status: Chronic Assessment and plan: low dose metoprolol Current Visit: No Qualifiers: Atrial fibrillation type: permanent Qualified Code(s): I48.2 - Chronic atrial fibrillation (5) Right arm cellulitis Status: Acute Assessment and plan: vancomycin, warm compresses, blood cx Current Visit: Yes Hospitalist: Subjective Interval history: Patient went in to be atrial fib with rapid ventricular response. Given the patient has problems with bradycardia we will start back a low-dose of metoprolol. Have notified Puja Early from Cardiology. Patient also had infiltration of her IV on her right arm resulting in severe cellulitis this morning. I started her on vancomycin. Patient not quite significant early this morning which is contributing to her tachycardia. Exam - Constitutional Vitals: Period Temp Pulse Resp BP Sys/Romero Pulse Ox Last 24 Hr 97.6 F-100.7 F 82-99 16-20 132-148/78-95 93-98 Exam: Heart Rate-[tachy] Lungs-[CTAB] GI-[+bs soft, NT] Ext-[severe erythema and swelling of right arm Neuro [Motor 5/5], agitated and demented psych agitated mood and affect] General [no acute distress] Results - Labs CBC & BMP: 09/22/16 05:07 09/22/16 05:07 Lab Results: I have reviewed the past 24 hour labs
[2016-09-22] MEDS: VANCOMYCIN INJ 1,000 MG in SODIUM CHLORIDE 0.9% 250 ML IV SCH (13:33)
[2016-09-22] MEDS: ASPIRIN EC 81 MG TABLET PO SCH (21:23)
[2016-09-22] MEDS: traZODone 50 MG TABLET PO SCH (21:23)
[2016-09-22] MEDS: SIMVASTATIN 10 MG TABLET PO SCH (21:23)
[2016-09-22] MEDS: ATORVASTATIN 20 MG TABLET PO SCH (21:23)
[2016-09-23] MEDS: VANCOMYCIN INJ 1,000 MG in SODIUM CHLORIDE 0.9% 250 ML IV SCH ×2 (02:34→13:33)
[2016-09-23 04:44] LABS: Basophils % 0.4 % (0.0-0.8); Eosinophils # 0.1 10*3/uL (0.0-0.87); Eosinophils % 1.4 % (0.00-10.9); Hemoglobin 10.6 GM/DL (12.0-16.0); Immature Granulocytes % 0.4 %; Immature Granulocytes Absolute 0.03 #; Lymphocytes # 1.4 10*3/uL (1.4-4.0); Lymphocytes % 19.6 % (21.3-54.2); Mean Corpuscular HGB Conc 32.1 GM/DL (32-36); Mean Corpuscular Hemoglobin 29 PG (27-34); Mean Corpuscular Volume 90.2 FL (87-102); Mean Platelet Volume 9.9 FL (9.6-12.0); Monocytes # 0.8 10*3/uL (0.11-0.8); Monocytes % 11.7 % (1.7-12.7); Neutrophils # 4.8 10*3/uL (1.4-7.4); Neutrophils % 66.5 % (38.7-73.9); Platelet Count 159 T/CUMM (130-400); Red Blood Count 3.66 MC/CUMM (3.8-5.5); Red Cell Distribution Width 15.9 % (9.3-17.3); White Blood Count 7.2 T/CUMM (4-12)
[2016-09-23 05:10] LABS: Calcium 9.4 MG/DL (8.5-10.1); Magnesium 1.9 MG/DL (1.8-2.4); Osmolality,Calculated 281.1 MOS/KG (273-304); Potassium 3.3 MMOL/L (3.5-5.1)
[2016-09-23 08:15] LABS: INR 2.1
[2016-09-23] MEDS: MEMANTINE 10 MG TABLET PO SCH ×2 (08:25→22:21)
[2016-09-23] MEDS: FAMOTIDINE 20 MG TABLET PO SCH ×2 (08:25→22:22)
[2016-09-23] MEDS: LOSARTAN 50 MG TABLET PO SCH (08:25)
[2016-09-23] MEDS: hydrALAZINE 25 MG TABLET PO SCH ×2 (08:25→22:20)
[2016-09-23] MEDS: ISOSORBIDE MONONITRATE 60 MG TABLET PO SCH (08:25)
[2016-09-23] MEDS: POTASSIUM CHLORIDE 20 MEQ TABLET PO PRN ×2 (08:25→10:28)
[2016-09-23] MEDS: CITALOPRAM 20 MG TABLET PO SCH (08:25)
[2016-09-23] MEDS: LEVOTHYROXINE 50 MCG TABLET PO SCH (08:25)
[2016-09-23 08:28] LABS: PT Patient Result 23.8 SECS
--- NOTE | 2016-09-23 09:27 | Cardiology Progress Note ---
Assessment and Plan (1) Bradycardia Status: Resolved Assessment and plan: SEE PLAN OF CARE LISTED BELOW. Current Visit: Yes (2) Falls frequently Status: Acute Assessment and plan: SEE PLAN OF CARE LISTED BELOW. Current Visit: Yes (3) Dementia Status: Chronic Assessment and plan: SEE PLAN OF CARE LISTED BELOW. Current Visit: Yes Qualifiers: Dementia type: Alzheimer's disease (4) Dyslipidemia Status: Chronic Assessment and plan: SEE PLAN OF CARE LISTED BELOW. Current Visit: Yes (5) Afib Status: Chronic Assessment and plan: SEE PLAN OF CARE LISTED BELOW. Current Visit: No Qualifiers: Atrial fibrillation type: permanent Qualified Code(s): I48.2 - Chronic atrial fibrillation (6) Right arm cellulitis Status: Acute Assessment and plan: SEE PLAN OF CARE LISTED BELOW Current Visit: Yes (7) Hypokalemia Status: Acute Assessment and plan: SEE PLAN OF CARE LISTED BELOW. Current Visit: Yes Cardiology - PN: Subj Interval history: Etl Architect: Dr. Anaya SUMMARY - Mrs. Langston, 86 year old female with history of mild cardiomyopathy, persistent or permanent atrial fibrillation and progressive dementia. She is admitted to the hospitalist service. Her digoxin and metoprolol were held upon admission because of bradycardia. However, she received an IV dose of labetalol and then later that night she had a heart rate down into the 30s. Cardiology was consulted to further evaluate patient's bradycardia. SEPTEMBER 23 UPDATE - Patient was seen and examined on the telemetry unit. She has done reasonably well overnight. Lopressor 25 mg was reinitiated yesterday. Early this morning, patient did have episode of bradycardia with long pauses. Lopressor has now been discontinued. No further RVR has been noted per telemetry. I have discussed with Dr. Anaya. Patient will require pacemaker this hospitalization as she is developing tachybradycardia syndrome. This can be performed within the next 24-48 hours once her cellulitis improves. Continue IV antibiotics. Vital signs are stable. Labs been reviewed. ASSESSMENT/PLAN: 1. BRADYCARDIA - Patient had recurrent episode of bradycardia with long pauses early this morning after Lopressor 25 mg was initiated yesterday. Lopressor has now been held. It appears that patient is developing tachybradycardia syndrome and will require pacemaker placement this hospitalization once her cellulitis stabilizes. At this point, we will continue to hold her AV ebony blocking agents and anticipate pacemaker the next 24-48 hours. I will await Dr. Anaya additional recommendations. 2. ATRIAL FIBRILLATION - Remains in atrial fibrillation, now rate controlled. Coumadin currently on hold. Will continue to hold as we are anticipating pacemaker in the next 24-48 hours. INR today 2.1. Daily INR. 3. DYSLIPIDEMIA - Continue current plan of care with lipid lowering agent. 4. DEMENTIA - Continue current plan of care. 5. FALLS FREQUENTLY - She has fallen 2 times in the last week. 6. CELLULITIS - Continue antibiotics. 7. HYPOKALEMIA - Replaced per protocol. Exam (Progress Note) - Constitutional Vitals: Period Temp Pulse Resp BP Sys/Romero Pulse Ox Last 24 Hr 96.9 F-100.0 F 71-99 16-20 94-150/60-97 93-97 Exam: General: Appears well with no apparent distress. Pleasant and cooperative. Thin and frail. HEENT: PERRL, normocephalic, atraumatic. Mucous membranes moist. No jaundice noted. Conjunctiva moist and clear, sclerae anicteric Neck: No JVD/HJR, no thyromegaly or lymphadenopathy noted. No carotid bruit appreciated Cardiac: Irregular rhythm, rate controlled. No murmur rub or gallop. Lungs: Clear to auscultation without accessory muscle use to assist the respiratory pattern. Not requiring oxygen. Abdomen: Soft, bowel sounds normoactive. Nontender and nondistended. No abdominal bruit or thrill noted. No masses noted. Extremities: No clubbing, cyanosis noted. Capillary refill less than 3 seconds. Erythema and swelling noted to right upper extremity. Skin: Large bruise noted to frontal/parietal region that tracts down over the side of her face. Neuro: Awake, alert and oriented 3. Moves all extremities well without hemiparesis or paralysis. No essential tremor is appreciated. Result/EKG - Labs CBC & BMP: 09/23/16 03:57 09/23/16 03:57 Lab Results: I have reviewed the past 24 hour labs Labs: Laboratory Results - last 24 hr 09/23/16 09/23/16 09/23/16 03:57 03:57 07:58 WBC 7.2 RBC 3.66 L Hgb 10.6 L Hct 33.0 L MCV 90.2 MCH 29 MCHC 32.1 RDW 15.9 Plt Count 159 MPV 9.9 Neut % (Auto) 66.5 Lymph % (Auto) 19.6 L [place] % (Auto) 11.7 Eos % (Auto) 1.4 Baso % (Auto) 0.4 Neut # (Auto) 4.8 Lymph # (Auto) 1.4 [place] # (Auto) 0.8 Eos # (Auto) 0.1 Baso # (Auto) 0.0 Immature Gran % 0.4 Nucleated RBC % 0.0 Immature Gran # 0.03 Nucleated RBCs # 0.00 INR 2.1 PT Patient/Control Mix 23.8 D Sodium 142 Potassium 3.3 L Chloride 104 Carbon Dioxide 33 H Anion Gap 8.3 BUN 12 Creatinine 0.60 GFR Calculation 82 BUN/Creatinine Ratio 20.00 Glucose 88 Calculated Osmolality 281.1 Calcium 9.4 Magnesium 1.9
[2016-09-23] MEDS ORDERED: POTASSIUM CHLORIDE 20 MEQ TABLET PO PRN (10:03)
[2016-09-23] MEDS ORDERED: WARFARIN 2.5 MG TABLET PO SCH (11:21)
--- NOTE | 2016-09-23 11:23 | Hospitalist Progress Note ---
Assessment and Plan (1) Bradycardia Status: Resolved Assessment and plan: Bruce/Tachy, restart Coumadin 2.5, hold metoprolol due to cardiac pauses. Discussed with Dr. Anaya and he will put pacemaker again when she is afebrile for 24 hours. Current Visit: Yes (2) Chest pain Status: Acute Assessment and plan: serial troponins negative Current Visit: Yes (3) Dementia Status: Chronic Assessment and plan: cont namenda and aricept Current Visit: Yes Qualifiers: Dementia type: Alzheimer's disease (4) Afib Status: Chronic Assessment and plan: unable to tolerate any meds Current Visit: No Qualifiers: Atrial fibrillation type: permanent Qualified Code(s): I48.2 - Chronic atrial fibrillation (5) Right arm cellulitis Status: Acute Assessment and plan: vancomycin, warm compresses, blood cx pending, looks much better today Current Visit: Yes Hospitalist: Subjective Interval history: Patient had only low-grade fever overnight. Right arm looks much better. Beta- patrizia had to be held due to cardiac pauses up to [address] Anaya and he would like to put a pacemaker in when she is been afebrile for 24 hours. Exam - Constitutional Vitals: Period Temp Pulse Resp BP Sys/Romero Pulse Ox Last 24 Hr 96.9 F-100.0 F 71-99 16-20 94-150/60-97 93-97 Exam: Heart Rate-[bruce] Lungs-[CTAB] GI-[+bs soft, NT] Ext-cellulitis of her right arm looks much better Neuro [Motor 5/5], agitated and demented psych agitated mood and affect] General [no acute distress] Results - Labs CBC & BMP: 09/23/16 03:57 09/23/16 03:57 Lab Results: I have reviewed the past 24 hour labs - Diagnostic Findings Procedure: MRI: report reviewed by me (No evidence of acute infarct)
[2016-09-23] MEDS: POLYETHYLENE GLYCOL POWDER 17 GM PACK PO SCH (15:12)
[2016-09-23] MEDS: DESITIN 4OZ/NYSTATIN 15 GRAM MIXTURE PASTE TOP SCH ×2 (15:12→22:22)
[2016-09-23] MEDS: ASPIRIN EC 81 MG TABLET PO SCH (22:21)
[2016-09-23] MEDS: ATORVASTATIN 20 MG TABLET PO SCH (22:21)
[2016-09-23] MEDS: traZODone 50 MG TABLET PO SCH (22:21)
[2016-09-23] MEDS: SIMVASTATIN 10 MG TABLET PO SCH (22:22)
[2016-09-24] MEDS: VANCOMYCIN INJ 1,000 MG in SODIUM CHLORIDE 0.9% 250 ML IV SCH ×2 (02:41→14:45)
[2016-09-24 05:50] LABS: Basophils % 0.5 % (0.0-0.8); Eosinophils # 0.1 10*3/uL (0.0-0.87); Eosinophils % 1.9 % (0.00-10.9); Hematocrit 35.9 VOL% (35.7-47.0); Hemoglobin 11.4 GM/DL (12.0-16.0); Immature Granulocytes % 1.1 %; Immature Granulocytes Absolute 0.07 #; Lymphocytes # 1.3 10*3/uL (1.4-4.0); Lymphocytes % 20.1 % (21.3-54.2); Mean Corpuscular HGB Conc 31.8 GM/DL (32-36); Mean Corpuscular Hemoglobin 29 PG (27-34); Mean Corpuscular Volume 90.7 FL (87-102); Mean Platelet Volume 10.2 FL (9.6-12.0); Monocytes # 0.7 10*3/uL (0.11-0.8); Monocytes % 11.1 % (1.7-12.7); Neutrophils # 4.1 10*3/uL (1.4-7.4); Neutrophils % 65.3 % (38.7-73.9); Platelet Count 179 T/CUMM (130-400); Red Blood Count 3.96 MC/CUMM (3.8-5.5); Red Cell Distribution Width 15.9 % (9.3-17.3); White Blood Count 6.2 T/CUMM (4-12)
[2016-09-24 06:11] LABS: Calcium 9.7 MG/DL (8.5-10.1); Osmolality,Calculated 281.1 MOS/KG (273-304); Potassium 3.9 MMOL/L (3.5-5.1)
[2016-09-24 09:02] LABS: INR 1.6; PT Patient Result 17.6 SECS
[2016-09-24] MEDS: CITALOPRAM 20 MG TABLET PO SCH (09:10)
[2016-09-24] MEDS: hydrALAZINE 25 MG TABLET PO SCH ×2 (09:10→21:01)
[2016-09-24] MEDS: LOSARTAN 50 MG TABLET PO SCH (09:10)
[2016-09-24] MEDS: ISOSORBIDE MONONITRATE 60 MG TABLET PO SCH (09:10)
[2016-09-24] MEDS: POLYETHYLENE GLYCOL POWDER 17 GM PACK PO SCH (09:11)
[2016-09-24] MEDS: MEMANTINE 10 MG TABLET PO SCH ×2 (09:11→21:03)
[2016-09-24] MEDS: LEVOTHYROXINE 50 MCG TABLET PO SCH (09:11)
[2016-09-24] MEDS: FAMOTIDINE 20 MG TABLET PO SCH ×2 (09:11→21:03)
[2016-09-24] MEDS: DESITIN 4OZ/NYSTATIN 15 GRAM MIXTURE PASTE TOP SCH ×2 (09:12→21:27)
[2016-09-24] MEDS ORDERED: POTASSIUM CHLORIDE 20 MEQ TABLET PO ONE (09:36)
--- NOTE | 2016-09-24 09:42 | Discharge Summary ---
<Dionte Walter - Last Filed: 09/25/16 08:43> Hospital Course - Hospital Course Hospital Course: Ms. Langston is a 86-year-old white female with a history of atrial fibrillation, CVA, CHF who was admitted through the [facility] on 09/20/2016 with complaints of right-sided chest pain. Echocardiogram on admission revealed mild concentric left ventricular hypertrophy with ejection fraction approximately 60- 65%, mild mitral valve sclerosis, and moderate aortic valve calcification. EKG on admission revealed atrial fibrillation with marked right axis deviation and right bundle branch block. Chest x-ray showed stable cardiomegaly. Patient was admitted to the hospital medicine service and placed on telemetry unit for close observation and further treatment. Patient was bradycardic on admission and metoprolol and digoxin were held. Cardiology was consulted to assist with the care of this patient. She was found to have episodes of atrial fibrillation with RVR with rates in the 140s and was thought to have a component of tachybradycardia syndrome. It was noted that at some point the patient may require pacemaker, however, given that the patient was being treated with vancomycin for right arm cellulitis this intervention was postponed. Patient continued to have a low-grade fever while on vancomycin however the cellulitis continued to improve. On 09/23/2016, patient was found to have 4 second pauses for which her ebony blocking agents were held. However she was also found to have tachycardia when getting up to go to the restroom. It became quite clear that the patient has tachybradycardia syndrome and was in need of pacemaker placement. On 09/24/2016, Dr. Neely proceeded with placement of a single-chamber permanent pacemaker via percutaneous left subclavian venotomy with sheath placement. Of note this pacemaker is MRI compatible. The patient tolerated procedure well and is recovering as expected. She experienced no significant spikes in her heart rate overnight and is stable for discharge at this time. She is to follow-up with cardiology and her PCP in 1-[address] Anaya next . She will need 5 more days of clindamycin. Patient seen and examined. Hospital course reviewed and edited. Discharge Plan - Discharge Data Disposition: Home Health Service - Discharge Medications New Losartan [Cozaar] 50 mg PO DAILY #30 tablet Atorvastatin [Lipitor] 20 mg PO BEDTIME #30 tablet Clindamycin HCl [Clindamycin Cap] 300 mg PO TID #15 capsule Continue traZODone [Desyrel] 100 mg PO BEDTIME Simvastatin [Zocor] 10 mg PO BEDTIME Isosorbide Mononitrate [Imdur] 60 mg PO DAILY Levothyroxine Tab [Synthroid Tab] 50 mcg PO DAILY Citalopram [CeleXA] 20 mg PO BID Omeprazole [Prilosec] 20 mg PO DAILY Metoprolol Succinate Xl [Toprol Xl] 50 mg PO DAILY Magnesium Chloride [Mag Delay] 64 mg PO TID Warfarin [Coumadin] 3 mg PO DAILY Aspirin EC Tab 81 mg PO BEDTIME Changed Pantoprazole Tab [Protonix Tab] 40 mg PO BEDTIME #30 tablet Discontinued hydrALAZINE TAB [Apresoline Tab] 25 mg PO BID Diltiazem Cd Cap [Cardizem Cd] 300 mg PO DAILY Potassium Chloride Tab [K Dur] 20 meq PO DAILY Furosemide Tab [Lasix Tab] 20 mg PO DAILY Digoxin Tab [Lanoxin Tab] 0.125 mg PO DAILY Memantine [Namenda] 10 mg PO BID Donepezil HCl [Aricept] 23 mg PO DAILY - Follow Up or Referral Follow Up: rj, [Other] - 1 Week Alisson Anaya DO [Physician] - 09/30/16 - Forms/Instructions Exam - Constitutional Vitals: Period Temp Pulse Resp BP Sys/Romero Pulse Ox Last 24 Hr 98.2 F-99.1 F 70-99 18-20 72-169/44-98 92-98 Discharge Results Procedures and tests throughout hospitalization: Pending Orders 09/22/16 10:29 Blood Culture Stat 09/24/16 09:53 CL heart Routine Labs on day of discharge: Labs from last 24 hours 09/25/16 09/24/16 09/24/16 04:29 13:25 08:29 INR 1.7 1.6 PT Patient/Control Mix 18.6 17.6 D Vancomycin Trough 13.8 Preliminary micro results at discharge 09/22/16 10:29 Blood Culture - Preliminary Blood No growth at 1 day 09/22/16 10:29 Blood Culture - Preliminary Blood No growth at 1 day DS: Provider Date of admission: 09/21/16 10:14 Primary care physician: Narciso Valero MD Attending physician on admission: Rashida Mckenzie MD Consults: 09/20/16 09:20 Consult to Pastoral Services [CONS] Routine Comment: Pastoral 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: 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 Visit 09/21/16 10:16 Consult to Occupational Therapy [CONS] Routine Reason for Occupational Therapy: Evaluate and Treat Consult to Physical Therapy [CONS] Routine Reason for Physical Therapy: Evaluate and Treat 09/21/16 10:32 Consult to Physician [CONS] Routine Comment: pause and bradycardia Consulting Provider: Alisson Anaya Consult to Specialist Group: Cardiology Person Notified: STARR Date Notified: 09/21/16 Time Notified: 11:10 09/22/16 09:54 Consult to Pharmacy [CONS] Routine Reason for Pharmacy Consult: Dose/Manage Vancomycin 09/22/16 11:15 Consult to Pharmacy [CONS] Routine Reason for Pharmacy Consult: Other Comment: manage coumadin 09/24/16 14:33 Consult to Case Mgmt/Social Srvs [CONS] Routine Reason for Case Mgmt/Social Srvs: Home Health Discharging clinician: Dionte BONILLA Expected date of discharge: 09/25/16 <Rashida Mckenzie - Last Filed: 09/25/16 11:02> Hospital Course - Time spent with patient Time with patient DS: Greater than 30 minutes (45 min) Diagnosis - Discharge Diagnosis (1) Bradycardia Status: Resolved (2) Chest pain Status: Acute (3) Dementia Status: Chronic (4) Afib Status: Chronic (5) Right arm cellulitis Status: Acute Discharge Plan - Discharge Data Condition at Discharge: Stable Discharge Diet: heart healthy Activity: resume usual activities as tolerated Hygiene: no restrictions Weight Bearing at Discharge: full weight bearing - Forms/Instructions Additional Discharge Instructions: lifting and activity instructions per cardiology Exam - Constitutional General appearance: normal weight, no acute distress - Respiratory Respiratory exam: Present: clear to auscultation bilaterally. Absent: rhonchi, wheezes - Cardiovascular Cardiovascular exam: Present: regular rate and rhythm. Absent: systolic murmur - GI/Abdominal GI/Abdominal exam: Present: normal bowel sounds, soft. Absent: tenderness - Neurological Exam Neurological exam: Present: altered - Psychiatric Psychiatric exam: Present: normal affect, normal mood
[2016-09-24] MEDS ORDERED: diphenhydrAMINE CAP 25 MG CAPSULE PO ONE (09:45)
[2016-09-24] MEDS ORDERED: VANCOMYCIN 500 MG VIAL IRRIG ONE (09:45)
[2016-09-24] MEDS ORDERED: DIAZEPAM 5 MG TABLET PO ONE (09:45)
--- NOTE | 2016-09-24 09:45 | Hospitalist Progress Note ---
Assessment and Plan (1) Bradycardia Status: Resolved Assessment and plan: Bruce/Tachy, pacer planned today Current Visit: Yes (2) Chest pain Status: Acute Assessment and plan: serial troponins negative Current Visit: Yes (3) Dementia Status: Chronic Assessment and plan: cont namenda and aricept Current Visit: Yes (4) Afib Status: Chronic Assessment and plan: pacer today Current Visit: No Qualifiers: Qualified Code(s): I48.2 - Chronic atrial fibrillation (5) Right arm cellulitis Status: Acute Assessment and plan: vancomycin, warm compresses, blood cx negative, afebrile Current Visit: Yes Hospitalist: Subjective Interval history: patient still having problems with tachy/bruce, Dr. joseph plans for pacer today. Exam - Constitutional Vitals: Period Temp Pulse Resp BP Sys/Romero Pulse Ox Last 24 Hr 96.2 F-99.4 F 67-96 16-20 129-175/85-98 91-98 Exam: Heart Rate-[bruce] Lungs-[CTAB] GI-[+bs soft, NT] Ext-cellulitis of her right arm looks much better Neuro [Motor 5/5], demented psych pleasant mood and affect] General [no acute distress] Results - Labs CBC & BMP: 09/24/16 05:28 09/24/16 05:28 Lab Results: I have reviewed the past 24 hour labs
--- NOTE | 2016-09-24 09:45 | Cardiology Progress Note ---
<Natalie Marques - Last Filed: 09/24/16 09:30> Assessment and Plan (1) Bradycardia Status: Resolved Assessment and plan: SEE PLAN OF CARE LISTED BELOW. Current Visit: Yes (2) Falls frequently Status: Acute Assessment and plan: SEE PLAN OF CARE LISTED BELOW. Current Visit: Yes (3) Dementia Status: Chronic Assessment and plan: SEE PLAN OF CARE LISTED BELOW. Current Visit: Yes Qualifiers: Dementia type: Alzheimer's disease (4) Dyslipidemia Status: Chronic Assessment and plan: SEE PLAN OF CARE LISTED BELOW. Current Visit: Yes (5) Afib Status: Chronic Assessment and plan: SEE PLAN OF CARE LISTED BELOW. Current Visit: No Qualifiers: Atrial fibrillation type: permanent Qualified Code(s): I48.2 - Chronic atrial fibrillation (6) Right arm cellulitis Status: Acute Assessment and plan: SEE PLAN OF CARE LISTED BELOW Current Visit: Yes (7) Hypokalemia Status: Acute Assessment and plan: SEE PLAN OF CARE LISTED BELOW. Current Visit: Yes Cardiology - PN: Subj Interval history: : Dr. Anaya SUMMARY - Mrs. Langston, 86 year old female with history of mild cardiomyopathy, persistent or permanent atrial fibrillation and progressive dementia. She is admitted to the hospitalist service. Her digoxin and metoprolol were held upon admission because of bradycardia. However, she received an IV dose of labetalol and then later that night she had a heart rate down into the 30s. Cardiology was consulted to further evaluate patient's bradycardia. SEPTEMBER 24 UPDATE - Patient was seen and examined on the telemetry unit. She has done reasonably well overnight. She has had no further bradycardic episodes on the battery starter. However, she did have episode of tachycardia with heart rates of 170s while she was in the bathroom. I have added low-dose beta-patrizia after discussing with Dr. Anaya. She will most likely require pacemaker she is developing tachybradycardia syndrome. Continue IV antibiotics. Vital signs are stable. Labs been reviewed. ASSESSMENT/PLAN: 1. BRADYCARDIA -patient has had no further episodes of bradycardia or pauses overnight. Low-dose beta-patrizia was initiated this morning as patient did have episode of rapid ventricular response, heart rates around 170. Will monitor patient closely on the battery starter. Will most likely require pacemaker this admission. 2. ATRIAL FIBRILLATION - Remains in atrial fibrillation, now rate controlled. However this morning, patient did have episode of rapid ventricular response while in the bathroom. Nursing staff reports that her heart rates were around 170-180. She is now rate controlled. Low-dose Coreg has been initiated. Coumadin was restarted yesterday per hospital medicine. INR today is 1.6. 3. DYSLIPIDEMIA - Continue current plan of care with lipid lowering agent. 4. DEMENTIA - Continue current plan of care. 5. FALLS FREQUENTLY - She has fallen 2 times in the last week. 6. CELLULITIS - Improving. Continue antibiotics. 7. HYPOKALEMIA - Resolved. 8. TACHY/MYRANDA SYNDROME - Patient will undergo pacemaker placement today per Dr. Neely. Will keep patient n.p.o. Will further discuss with Dr. Anaya and await his additional recommendations. Exam (Progress Note) - Constitutional Vitals: Period Temp Pulse Resp BP Sys/Romero Pulse Ox Last 24 Hr 96.2 F-99.4 F 67-96 16-20 129-175/85-98 91-98 Exam: General: Appears well with no apparent distress. Pleasant and cooperative. Thin and frail. HEENT: PERRL, normocephalic, atraumatic. Mucous membranes moist. No jaundice noted. Conjunctiva moist and clear, sclerae anicteric Neck: No JVD/HJR, no thyromegaly or lymphadenopathy noted. No carotid bruit appreciated Cardiac: Irregular rhythm, rate controlled. No murmur rub or gallop. Lungs: Clear to auscultation without accessory muscle use to assist the respiratory pattern. Not requiring oxygen. Abdomen: Soft, bowel sounds normoactive. Nontender and nondistended. No abdominal bruit or thrill noted. No masses noted. Extremities: No clubbing, cyanosis noted. Capillary refill less than 3 seconds. Erythema and swelling noted to right upper extremity, improving. Skin: Large bruise noted to frontal/parietal region that tracts down over the side of her face. Neuro: Awake, alert and oriented 3. Moves all extremities well without hemiparesis or paralysis. No essential tremor is appreciated. Result/EKG - Labs CBC & BMP: 09/24/16 05:28 09/24/16 05:28 Lab Results: I have reviewed the past 24 hour labs Labs: Laboratory Results - last 24 hr 09/23/16 09/24/16 09/24/16 12:23 05:28 05:28 WBC 6.2 RBC 3.96 Hgb 11.4 L Hct 35.9 MCV 90.7 MCH 29 MCHC 31.8 L RDW 15.9 Plt Count 179 MPV 10.2 Neut % (Auto) 65.3 Lymph % (Auto) 20.1 L [place] % (Auto) 11.1 Eos % (Auto) 1.9 Baso % (Auto) 0.5 Neut # (Auto) 4.1 Lymph # (Auto) 1.3 L [place] # (Auto) 0.7 Eos # (Auto) 0.1 Baso # (Auto) 0.0 Immature Gran % 1.1 Nucleated RBC % 0.0 Immature Gran # 0.07 Nucleated RBCs # 0.00 INR PT Patient/Control Mix Sodium 142 Potassium 3.9 3.9 Chloride 105 Carbon Dioxide 32 Anion Gap 8.9 BUN 9 Creatinine 0.50 L GFR Calculation 105 BUN/Creatinine Ratio 18.00 Glucose 103 Calculated Osmolality 281.1 Calcium 9.7 Magnesium 2.0 09/24/16 08:29 WBC RBC Hgb Hct MCV MCH MCHC RDW Plt Count MPV Neut % (Auto) Lymph % (Auto) [place] % (Auto) Eos % (Auto) Baso % (Auto) Neut # (Auto) Lymph # (Auto) [place] # (Auto) Eos # (Auto) Baso # (Auto) Immature Gran % Nucleated RBC % Immature Gran # Nucleated RBCs # INR 1.6 PT Patient/Control Mix 17.6 D Sodium Potassium Chloride Carbon Dioxide Anion Gap BUN Creatinine GFR Calculation BUN/Creatinine Ratio Glucose Calculated Osmolality Calcium Magnesium <Alisson Anaya - Last Filed: 09/24/16 09:48> Assessment and Plan (1) Falls frequently Status: Acute Current Visit: Yes (2) Afib Status: Chronic Current Visit: No Qualifiers: Atrial fibrillation type: permanent Qualified Code(s): I48.2 - Chronic atrial fibrillation (3) Dementia Status: Chronic Current Visit: Yes Qualifiers: Dementia type: Alzheimer's disease (4) Bradycardia Status: Resolved Current Visit: Yes (5) Dyslipidemia Status: Chronic Current Visit: Yes Exam (Progress Note) - Constitutional Vitals: Period Temp Pulse Resp BP Sys/Romero Pulse Ox Last 24 Hr 96.2 F-99.4 F 67-96 16-20 129-175/85-98 91-98 Result/EKG - Labs CBC & BMP: 09/24/16 05:28 09/24/16 05:28 Labs: Laboratory Results - last 24 hr 09/23/16 09/24/16 09/24/16 12:23 05:28 05:28 WBC 6.2 RBC 3.96 Hgb 11.4 L Hct 35.9 MCV 90.7 MCH 29 MCHC 31.8 L RDW 15.9 Plt Count 179 MPV 10.2 Neut % (Auto) 65.3 Lymph % (Auto) 20.1 L [place] % (Auto) 11.1 Eos % (Auto) 1.9 Baso % (Auto) 0.5 Neut # (Auto) 4.1 Lymph # (Auto) 1.3 L [place] # (Auto) 0.7 Eos # (Auto) 0.1 Baso # (Auto) 0.0 Immature Gran % 1.1 Nucleated RBC % 0.0 Immature Gran # 0.07 Nucleated RBCs # 0.00 INR PT Patient/Control Mix Sodium 142 Potassium 3.9 3.9 Chloride 105 Carbon Dioxide 32 Anion Gap 8.9 BUN 9 Creatinine 0.50 L GFR Calculation 105 BUN/Creatinine Ratio 18.00 Glucose 103 Calculated Osmolality 281.1 Calcium 9.7 Magnesium 2.0 09/24/16 08:29 WBC RBC Hgb Hct MCV MCH MCHC RDW Plt Count MPV Neut % (Auto) Lymph % (Auto) [place] % (Auto) Eos % (Auto) Baso % (Auto) Neut # (Auto) Lymph # (Auto) [place] # (Auto) Eos # (Auto) Baso # (Auto) Immature Gran % Nucleated RBC % Immature Gran # Nucleated RBCs # INR 1.6 PT Patient/Control Mix 17.6 D Sodium Potassium Chloride Carbon Dioxide Anion Gap BUN Creatinine GFR Calculation BUN/Creatinine Ratio Glucose Calculated Osmolality Calcium Magnesium
[2016-09-24] MEDS ORDERED: LIDOCAINE 1%/EPI INJ 20 ML VIAL ONE (09:58)
[2016-09-24] MEDS ORDERED: MIDAZOLAM 2 MG/2 ML VIAL ONE (09:58)
[2016-09-24] MEDS ORDERED: HYDROmorphone 2 MG/1 ML VIAL ONE (09:58)
[2016-09-24] MEDS ORDERED: CARVEDILOL 3.125 MG TABLET PO SCH (10:00)
[2016-09-24] MEDS: SODIUM CHLORIDE 0.9% 1,000 ML IV SCH (10:13)
[2016-09-24] MEDS ORDERED: ceFAZolin 1,000 MG VIAL ONE (10:26)
[2016-09-24] MEDS ORDERED: TISSUE ADHESIVE 1 EACH APPLICATOR TOP ONE (11:04)
--- NOTE | 2016-09-24 11:25 | Cardiac Pacemaker ---
- Preoperative diagnosis Date of Procedure:: 09/24/16 Procedure: The patient has atrial fibrillation with tachycardia/bradycardia syndrome and needs a single-chamber pacemaker. Procedures performed 1. Percutaneous left subclavian venotomy with sheath placement 2. Placement of ventricular lead with threshold testing 3. Placement of single permanent (note, this is an MRI compatible pacemaker system) The patient had symptomatic bradycardia tachy/bruce syndrome and needed a pacemaker. After informed consent was obtained was taken to catheter prepped and draped in usual sterile manner. We used minimal sedation for this case. We placed a J-tipped wire in the left subclavian vein using a modified Seldinger technique in the usual fashion. With then a pocket approximately 2 cm below the left clavicular border using blunt and sharp dissection as well as electrocautery. We then pulled our leads into the pocket from below. Using a safe sheath, we placed a Medtronic 5076-52 centimeter ventricular lead into the right ventricular apex and secured it with a helical coil. Serial number on the ventricular lead is [id number]. Excellent capture and sensing thresholds were achieved. After the sheath had been removed, we sutured the leads to the pocket floor using Ethibond suture. We then rinsed the pocket with antibiotic solution and then connected the leads to a Medtronic Advisa SR MRI compatible pacemaker model [id number]. Serial number on the pacemaker is [id number]. After the device give been connected to the lead, it was placed in the pocket and sutured pocket floor with Ethibond suture. We then closed the pocket 2 layers using Vicryl suture. We then applied a topical adhesive followed by Steri- Strips and a dressing. There were no apparent complications during the procedure. The patient remained stable throughout the procedure and will now be transferred back to his room for recovery. Anesthesia: minimal conscious sedation Surgeon / Physician: Lakhwinder Neely Estimated blood loss: minimal Condition: stable Disposition: floor - Discharge Disposition: Home Health Service - Medications / Follow-up
--- NOTE | 2016-09-24 12:01 | XRay Report ---
XR chest 1V portable Indication: Lead placement Comparison: 20 September 2016 Findings: The heart and mediastinum are stable in size and configuration. Pacemaker is been placed and appears in good position. The pulmonary vascularity is slightly increased with bilateral increased interstitial lung density. No other lung infiltrates, effusions, pneumothorax or other abnormality is demonstrated. Impression: Findings suggest mild cardiac decompensation. Pacemaker appears within normal limits. PROCEDURE INTERPRETED AT [facility] DEPARTMENT OF RADIOLOGY Final Report Signed by: Dr. Luis Antonio Solis
--- NOTE | 2016-09-24 12:12 | EKG Report ---
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
[2016-09-24] MEDS ORDERED: SODIUM CHLORIDE 0.9% 250 ML IV ONE (14:32)
[2016-09-24] MEDS: METOPROLOL TARTRATE 25 MG TABLET PO SCH ×2 (15:08→21:03)
[2016-09-24] MEDS: ATORVASTATIN 20 MG TABLET PO SCH (21:03)
[2016-09-24] MEDS: SIMVASTATIN 10 MG TABLET PO SCH (21:04)
[2016-09-24] MEDS: ASPIRIN EC 81 MG TABLET PO SCH (21:05)
[2016-09-24] MEDS: traZODone 50 MG TABLET PO SCH (21:28)
[2016-09-25] MEDS: VANCOMYCIN INJ 1,000 MG in SODIUM CHLORIDE 0.9% 250 ML IV SCH (03:16)
[2016-09-25 05:01] LABS: INR 1.7; PT Patient Result 18.6 SECS
[2016-09-25] MEDS: SODIUM CHLORIDE 0.9% 1,000 ML IV SCH (07:17)
--- NOTE | 2016-09-25 07:57 | XRay Report ---
XR chest 2V Date: 09/25/2016 8:18 AM History: Lead placement Comparison: 09/24/2016 Technique: PA and lateral chest Findings: Stable cardiomegaly and left subclavian ventricular permanent pacemaker. No pneumothorax. Reduced parenchymal findings in the lungs with stable mediastinum and osseous structures. Postoperative findings in the left upper quadrant. Impression: Left subclavian ventricular permanent pacemaker is stable position with no pneumothorax. Resolved CHF. PROCEDURE INTERPRETED AT [facility] DEPARTMENT OF RADIOLOGY Final Report Signed by: Dr. Sanaz Vo
--- NOTE | 2016-09-25 07:58 | EKG Report ---
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
[2016-09-25] MEDS: LOSARTAN 50 MG TABLET PO SCH (09:29)
[2016-09-25] MEDS: CITALOPRAM 20 MG TABLET PO SCH (09:29)
[2016-09-25] MEDS: hydrALAZINE 25 MG TABLET PO SCH (09:29)
[2016-09-25] MEDS: FAMOTIDINE 20 MG TABLET PO SCH (09:30)
[2016-09-25] MEDS: METOPROLOL TARTRATE 25 MG TABLET PO SCH (09:30)
[2016-09-25] MEDS: ISOSORBIDE MONONITRATE 60 MG TABLET PO SCH (09:30)
[2016-09-25] MEDS: MEMANTINE 10 MG TABLET PO SCH (09:30)
[2016-09-25] MEDS: POLYETHYLENE GLYCOL POWDER 17 GM PACK PO SCH (09:30)
[2016-09-25] MEDS: LEVOTHYROXINE 50 MCG TABLET PO SCH (09:30)
[2016-09-25] MEDS: DESITIN 4OZ/NYSTATIN 15 GRAM MIXTURE PASTE TOP SCH (09:42)
--- NOTE | 2016-09-25 10:02 | Cardiology Progress Note ---
Assessment and Plan (1) Falls frequently Status: Acute Assessment and plan: . Current Visit: Yes (2) Afib Status: Chronic Assessment and plan: Status post pacer implant. Current Visit: No Qualifiers: Atrial fibrillation type: permanent Qualified Code(s): I48.2 - Chronic atrial fibrillation (3) Dementia Status: Chronic Current Visit: Yes Qualifiers: Dementia type: Alzheimer's disease (4) Bradycardia Status: Resolved Assessment and plan: Status post VVI pacer Current Visit: Yes (5) Dyslipidemia Status: Chronic Current Visit: Yes Cardiology - PN: Subj Interval history: The patient looks quite good. Her blood pressure heart rate are good and her chest x-ray is good her interrogation is good. She has no complaints. She has a mild area of ecchymosis around her side. She has been afebrile. With initiation of her beta-patrizia heart rates gotten much better and her blood pressure is acceptable. There is nothing further to add from a cardiovascular standpoint this time she may be discharged at any time. I would recommend because of her recent cellulitis of her right upper extremity that she be on antibiotics for a few days. Recommend at least 5. I will be glad to see the patient back in the clinic at the end of this week for pocket check and re- interrogation. Exam (Progress Note) - Constitutional Vitals: Period Temp Pulse Resp BP Sys/Romero Pulse Ox Last 24 Hr 98.1 F-99.1 F 70-99 18-20 72-195/44-99 92-98 General appearance: cachectic - Head Head exam: Present: normal inspection - Eye Eye exam: Present: EOMI Pupils: Present: TERESA - Respiratory Respiratory exam: Present: clear to auscultation bilaterally - Cardiovascular Cardiovascular exam: Present: irregular rhythm (Rate is controlled about 80) - GI/Abdominal GI/Abdominal exam: Present: normal bowel sounds - Extremities Exam Extremities exam: Present: normal inspection - Neurological Exam Neurological exam: Present: alert, oriented X3 - Psychiatric Psychiatric exam: Present: normal affect, normal mood - Skin Skin exam: Present: normal color, warm, dry, other (Mild ecchymosis around the pacer site but it looks good.) Result/EKG - Labs CBC & BMP: 09/24/16 05:28 09/24/16 05:28 Labs: Laboratory Results - last 24 hr 09/24/16 09/25/16 13:25 04:29 INR 1.7 PT Patient/Control Mix 18.6 Vancomycin Trough 13.8
[2016-09-25] MEDS ORDERED: FUROSEMIDE 20 MG/2 ML VIAL IV ONE (10:59)
[2016-09-25 11:36] VITALS: BP 120/77
--- NOTE | 2016-10-06 15:50 | Physician Query Form ---
CLICK EDIT DOCUMENT TO SELECT QUERY ANSWER --> OK --> SIGN Kayli Kern RN Clinical Cooperative Education Director W) [phone] (f) [phone] [email or web address]: Make your selection(s) from the choices in EACH section by typing an "x" and enter comments in the comment section. Please use your independent medical judgment in providing your response. This request does not imply that any particular answer is desired or expected. CLINICAL INDICATORS: (Providers should not edit this section) Based on documentation of "history of CHF", [id number], Echo showed EF of 60-65%. Pt. treated with IV Lasix. Please provide further specificity regarding CHF. ACUITY: ( ) Acute ( ) Chronic ( ) Acute on Chronic ( ) Clinicallly unable to determine TYPE: ( ) Systolic (HFrEF - heart failure with reduced systolic function/EF) ( ) Diastolic (HFpEF - heart failure with preserved systolic function/EF) ( ) Combined Systolic/Diastolic ( ) Other, please specify: ( ) Clinically unable to determine ( x) The patient does NOT have CHF COMMENTS: PLEASE ALSO DOCUMENT RESPONSE IN PROGRESS NOTES AND/OR DISCHARGE SUMMARY Use of terms such as suspected, likely, or probable (associated with a specific diagnosis that is being evaluated, monitored, or treated as if it exists) are acceptable and can be restated in the discharge summary if not ruled out. MTDD
== END 2016-09-25 13:20 | disposition home health service (06) | DRG 243 ==
LOC: EDBD → EDUNIT# → N.EDINP 05:10 → N.ED 05:10 → N.TELEN 08:25
PROVIDERS: ADMIT Internal Medicine; ATTEND Internal Medicine

== ENCOUNTER 2016-09-29 12:14 | Inpatient (IN) ==
[2016-09-29] MEDS ORDERED: SODIUM CHLORIDE 0.9% 500 ML IV STA (12:49)
[2016-09-29] MEDS ORDERED: ONDANSETRON 4 MG/2 ML VIAL IV STA (12:49)
[2016-09-29] MEDS ORDERED: ASPIRIN 325 MG TABLET PO STA (12:49)
--- NOTE | 2016-09-29 12:53 | EKG Report ---
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
--- NOTE | 2016-09-29 13:16 | XRay Report ---
XR chest 1V portable Indication: Chest pain Comparison: Chest x-ray dated September 25, 2016 Technique: Single frontal view of the chest. Findings: Continued cardiomegaly. Pacemaker apparatus again demonstrated. Chronic change of the lungs without focal consolidation, pleural effusion, or pneumothorax. Mild elevation of left hemidiaphragm. Visualized osseous and surrounding soft tissue structures appear grossly unchanged. Diffuse osteopenia. IMPRESSION: Continued cardiomegaly without bairon pulmonary edema. PROCEDURE INTERPRETED AT [facility] DEPARTMENT OF RADIOLOGY Final Report Signed by: Dr Mikie Cardona
[2016-09-29] MEDS ORDERED: ASPIRIN 325 MG TABLET ONE (13:19)
[2016-09-29] MEDS ORDERED: ONDANSETRON 4 MG/2 ML VIAL ONE (13:19)
--- NOTE | 2016-09-29 13:41 | Emergency Department Note ---
Fannie Cesar Rolonda, am scribing for, and in the presence of, Joseph Lopez MD 13:03. Jessica Cesar Charles R, MD, personally performed the services described in this documentation, ascribed by Fidel Greco in my presence, and it is both accurate and complete [id number] . Arrival - Arrival Chief Complaint: Chest Pain Stated Complaint: CP ED Nursing Triage Note: PT BROUGHT FROM HOME BY EMS FOR EVALUATION OF CHEST TIGHTNESS SINCE THIS MORNING. PT HAD PACEMAKER PLACED LAST WEEK AND WAS DISCHARGED HOME ON TUESDAY. PT IS PLEASENTLY DEMENTED AND UNABLE TO PROVIDE HISTORY. Mode of Arrival: Stretcher Limitations: No Limitations Source: Patient, Old Records Reviewed, RN Notes Reviewed - History of Present Illness HPI Narrative: Pt is an 85 y/o female who was brought to the ED via stretcher for further evaluation of chest pain with an onset of this morning. Pt has a PMHx of AFIB, CHF, and pacemaker which was implanted x6 days ago by Dr. Patel. Pt's daughter states that pt complained of chest pain earlier this morning which prompted her visit to the ED. No other complaint/pain in ED. Onset (ago): hour(s) Consistency: constant Severity: mild Severity scale (1-10): 3 Allergies/Adverse Reactions: Allergies Allergy/AdvReac Type Severity Reaction Status Date / Time codeine Allergy Unknown/Unable Verified 09/29/16 12:28 to obtain hydrocodone Allergy Unknown/Unable Verified 09/29/16 12:28 to obtain nalbuphine [From Nubain] Allergy Unknown/Unable Verified 09/29/16 12:28 to obtain pentazocine [From Talwin] Allergy Unknown/Unable Verified 09/29/16 12:28 to obtain Home Medications: Home Medications Medication Instructions Recorded Confirmed Type Citalopram [CeleXA] 20 mg PO BID 08/13/14 09/20/16 History Isosorbide Mononitrate [Imdur] 60 mg PO DAILY 08/13/14 09/20/16 History Levothyroxine Tab [Synthroid Tab] 50 mcg PO DAILY 08/13/14 09/20/16 History Magnesium Chloride [Mag Delay] 64 mg PO TID 08/13/14 09/20/16 History Metoprolol Succinate Xl [Toprol Xl] 50 mg PO DAILY 08/13/14 09/20/16 History Omeprazole [Prilosec] 20 mg PO DAILY 08/13/14 09/20/16 History Simvastatin [Zocor] 10 mg PO BEDTIME 08/13/14 09/20/16 History traZODone [Desyrel] 100 mg PO BEDTIME 08/13/14 09/20/16 History Warfarin [Coumadin] 3 mg PO DAILY 07/31/15 09/20/16 History Aspirin EC Tab 81 mg PO BEDTIME 10/27/15 09/20/16 History Atorvastatin [Lipitor] 20 mg PO BEDTIME #30 tablet 09/25/16 Rx Clindamycin HCl [Clindamycin Cap] 300 mg PO TID #15 capsule 09/25/16 Rx Losartan [Cozaar] 50 mg PO DAILY #30 tablet 09/25/16 Rx Pantoprazole Tab [Protonix Tab] 40 mg PO BEDTIME #30 tablet 09/25/16 09/20/16 Rx Review of System - Review of System Constitutional: Absent: fever Respiratory: Absent: cough, respiratory distress Cardiovascular: Present: chest pain Gastrointestinal: Present: abdominal pain Musculoskeletal: Absent: arm pain, back pain, neck pain Neurological: Present: headache Medical,Surgical,& Family Hx - Medical History Cardio: History of: Cardiac Dysrhythmia (AFIB, permanent), CHF, Hypertension, [place] , Pacemaker, Cardiovascular Problems (a-fib) Neurology: History of: Dementia Endocrine: History of: Dyslipidemia, Thyroid Disorder Gastrointestinal: History of: Diverticulitis/ Diverticulosis, GERD - Surgical History Neurologic Surgeries: Patient denies: Neurologic Surgery Abdominal Surgeries: Surgical HX of: Abdominal Surgery Reproductive Surgeries: Surgical HX of;: Hysterectomy Orthopedic Surgeries: Surgical HX of;: Orthopedic Surgery (bilateral knees) - Family History Family History: Reports;: Family Cancer (father-prostate), Family Diabetes ( mother) - Social History Smoking Status: Never smoker Frequency of Alcohol Use: None Type of Drug Use: None Exam Vital Signs: Vital Signs Temperature 98.9 F 09/29/16 12:14 Pulse Rate 100 H 09/29/16 12:14 Respiratory Rate 4 L 09/29/16 14:48 Blood Pressure 97/72 09/29/16 12:14 O2 Sat by Pulse Oximetry 97 09/29/16 12:14 - General General appearance: alert, in no apparent distress, other (malnutritioned; temporal wasting) - Head Head exam: Present: atraumatic, normocephalic - Eye Eye exam: Present: PERRL, EOMI, other (sunken orbits) - ENT ENT exam: Present: mucous membranes moist. Absent: mucous membranes dry - Neck Neck exam: Present: full ROM. Absent: tenderness - Chest Chest inspection: Present: symmetric chest wall rise. Absent: tenderness - Respiratory Respiratory exam: Present: normal lung sounds bilaterally. Absent: rales - Cardiovascular Cardiovascular exam: Present: irregular rhythm, clicks (pacemaker is pacing) - Abdominal Exam Abdominal exam: Present: soft, normal bowel sounds. Absent: tenderness - Extremities Exam Extremities exam: Present: pedal edema (1+ both extremities) - Back Exam Back exam: Present: full ROM. Absent: tenderness - Neurological Exam Neurological exam: Present: alert, CN II-XII intact, other (bad historian) - Psychiatric Psychiatric exam: Present: normal affect, normal mood - Skin Skin exam: Present: other (brusing around pacemaker; poor skin tugor) Course - Consultations Consultation #1: Hospitalist will admit patient Time: 15:11 Results - Labs CBC & BMP: 09/29/16 13:29 09/29/16 13:29 Lab Results: I have reviewed the patients labs Labs: Laboratory Tests 09/29/16 09/29/16 09/29/16 13:29 13:29 13:29 WBC 10.4 RBC 3.75 L Hgb 11.0 L Hct 33.8 L Plt Count 185 Neut % (Auto) 78.7 H Lymph % (Auto) 12.5 L Neut # (Auto) 8.2 H Lymph # (Auto) 1.3 L INR 1.7 PT Patient/Control Mix 18.8 Sodium 143 Potassium 3.7 Chloride 106 Carbon Dioxide 30 BUN 9 GFR Calculation 64 Albumin 3.3 L Albumin/Globulin Ratio 1.0 L Urine pH Ur Specific [place] Urine Protein Urine Glucose (UA) Urine Ketones Urine Blood Urine Nitrate Urine Bilirubin Urine Urobilinogen Urine Leukocytes Urine RBC Urine WBC Ur Squamous Epith Cells Urine Bacteria Hyaline Casts Urine Mucus Ur Culture Indicated? 09/29/16 13:45 WBC RBC Hgb Hct Plt Count Neut % (Auto) Lymph % (Auto) Neut # (Auto) Lymph # (Auto) INR PT Patient/Control Mix Sodium Potassium Chloride Carbon Dioxide BUN GFR Calculation Albumin Albumin/Globulin Ratio Urine pH 5.0 Ur Specific [place] 1.019 Urine Protein Negative Urine Glucose (UA) Negative Urine Ketones Negative Urine Blood Negative Urine Nitrate Negative Urine Bilirubin Negative Urine Urobilinogen < 2.0 H Urine Leukocytes Negative Urine RBC 5 Urine WBC 4 Ur Squamous Epith Cells Occasional Urine Bacteria Occasional Hyaline Casts 27 Urine Mucus Few Ur Culture Indicated? Not indicated - Diagnostic Findings Procedure: Chest x-ray: report reviewed by me (Continued cardiomegaly without bairon pulmonary edema.) Disposition Clinical Impression: Atypical chest pain, Recent placement of pacemaker Case discussed with: patient, patient's family Disposition: Still a Patient Condition: Stable Time of Disposition: 15:12
[2016-09-29 13:46] LABS: Basophils % 0.3 % (0.0-0.8); Eosinophils % 0.3 % (0.00-10.9); Hematocrit 33.8 VOL% (35.7-47.0); Immature Granulocytes % 0.5 %; Immature Granulocytes Absolute 0.05 #; Lymphocytes # 1.3 10*3/uL (1.4-4.0); Lymphocytes % 12.5 % (21.3-54.2); Mean Corpuscular HGB Conc 32.5 GM/DL (32-36); Mean Corpuscular Hemoglobin 29 PG (27-34); Mean Corpuscular Volume 90.1 FL (87-102); Mean Platelet Volume 9.9 FL (9.6-12.0); Monocytes # 0.8 10*3/uL (0.11-0.8); Monocytes % 7.7 % (1.7-12.7); Neutrophils # 8.2 10*3/uL (1.4-7.4); Neutrophils % 78.7 % (38.7-73.9); Platelet Count 185 T/CUMM (130-400); Red Blood Count 3.75 MC/CUMM (3.8-5.5); Red Cell Distribution Width 15.9 % (9.3-17.3); White Blood Count 10.4 T/CUMM (4-12)
[2016-09-29 13:55] LABS: INR 1.7; PT Patient Result 18.8 SECS
[2016-09-29 13:57] LABS: Apearance,Urine CLOUDY (Clear); Bacteria,Urine Occasional /HPF (Few); Bilirubin,Urine Negative (Negative); Blood, Urine Negative (Negative); Glucose,Urine (UA) Negative (Negative); Hyaline Casts,Urine 27 /LPF (0-3); Ketones,Urine Negative (Negative); Mucus,Urine Few /LPF (Occasional); Nitrite,Urine Negative (Negative); Protein,Urine Negative; RBC,Urine 5 /HPF (0-4); Squamous Epithelial Cell,Urine Occasional /HPF (0-10); Urine Color Yellow (Yellow); Urine Specific Gravity 1.019 (1.001-1.035); Urine Urobilinogen < 2.0 EU/DL (0.2-1.0); WBC,Urine 4 /HPF (0-6)
[2016-09-29 14:12] LABS: Albumin 3.3 G/DL (3.4-5.0); Bilirubin,Total 0.8 MG/DL (0.2-1.0); Calcium 9.8 MG/DL (8.5-10.1); Potassium 3.7 MMOL/L (3.5-5.1); Total Protein 6.4 G/DL (6.4-8.3)
--- NOTE | 2016-09-29 17:48 | Hospitalist History & Physical ---
Assessment and Plan - Time spent with patient Time spent with patient: Greater than 30 minutes (1) Chest pain Status: Acute Assessment and plan: Atypical. Likely non cardiac. Initial troponin was negative. Serial troponins. EKG shows RBBB with afib. Patient is DNR/DNI. Will consult Cardiology for the morning given the recent pacemaker placement and requirement for check. Current Visit: No (2) Afib Status: Chronic Assessment and plan: Continue home medications. Current Visit: No Qualifiers: Atrial fibrillation type: permanent Qualified Code(s): I48.2 - Chronic atrial fibrillation (3) CAD (coronary artery disease) Status: Acute Assessment and plan: Continue home medications. Current Visit: Yes (4) Dyslipidemia Status: Chronic Assessment and plan: Continue medications. Current Visit: No (5) Dementia Status: Chronic Current Visit: No Qualifiers: Dementia type: Alzheimer's disease History of Present Illness Chief complaint: chest pain History of present illness: Ms. Langston is an 86 year old female with Atrial fibrillation, CHF, CAD with hx of NM, dementia who presents with complaints of chest pain. Given the severity of patient's dementia I obtained the history from the patient's daughter who is at bedside. According to the daughter the patient was sitting on her recliner earlier in the day and made a facial expression that appeared to indicate she was in pain. The daughter asked her the source of her pain and the patient stated she was "hurting' and "pointed to her chest" and said she had trouble breathin. She was brought in to the ER for further evaluation. The patient denies having any chest pain or SOB currently. Doesnt remember earlier events. She answers yes to everything, seemingly to appease me, even to open ended questions. Unable to obtain a reliable ROS. Home Medications Medication Instructions Recorded Confirmed Type Citalopram [CeleXA] 20 mg PO BID 08/13/14 09/20/16 History Isosorbide Mononitrate [Imdur] 60 mg PO DAILY 08/13/14 09/20/16 History Levothyroxine Tab [Synthroid Tab] 50 mcg PO DAILY 08/13/14 09/20/16 History Magnesium Chloride [Mag Delay] 64 mg PO TID 08/13/14 09/20/16 History Metoprolol Succinate Xl [Toprol Xl] 50 mg PO DAILY 08/13/14 09/20/16 History Omeprazole [Prilosec] 20 mg PO DAILY 08/13/14 09/20/16 History Simvastatin [Zocor] 10 mg PO BEDTIME 08/13/14 09/20/16 History traZODone [Desyrel] 100 mg PO BEDTIME 08/13/14 09/20/16 History Warfarin [Coumadin] 3 mg PO DAILY 07/31/15 09/20/16 History Aspirin EC Tab 81 mg PO BEDTIME 10/27/15 09/20/16 History Atorvastatin [Lipitor] 20 mg PO BEDTIME #30 tablet 09/25/16 Rx Clindamycin HCl [Clindamycin Cap] 300 mg PO TID #15 capsule 09/25/16 Rx Losartan [Cozaar] 50 mg PO DAILY #30 tablet 09/25/16 Rx Pantoprazole Tab [Protonix Tab] 40 mg PO BEDTIME #30 tablet 09/25/16 09/20/16 Rx Allergies Allergy/AdvReac Type Severity Reaction Status Date / Time codeine Allergy Unknown/Unable Verified 09/29/16 12:28 to obtain hydrocodone Allergy Unknown/Unable Verified 09/29/16 12:28 to obtain nalbuphine [From Nubain] Allergy Unknown/Unable Verified 09/29/16 12:28 to obtain pentazocine [From Talwin] Allergy Unknown/Unable Verified 09/29/16 12:28 to obtain Medical,Surgical,& Family Hx - Medical History Cardio: History of: Cardiac Dysrhythmia (AFIB, permanent), CHF, Hypertension, [place] , Pacemaker, Cardiovascular Problems (a-fib) Neurology: History of: Dementia Endocrine: History of: Dyslipidemia, Thyroid Disorder Gastrointestinal: History of: Diverticulitis/ Diverticulosis, GERD - Surgical History Neurologic Surgeries: Patient denies: Neurologic Surgery Abdominal Surgeries: Surgical HX of: Abdominal Surgery Reproductive Surgeries: Surgical HX of;: Hysterectomy Orthopedic Surgeries: Surgical HX of;: Orthopedic Surgery (bilateral knees) - Family History Family History: Reports;: Family Cancer (father-prostate), Family Diabetes ( mother) - Social History Smoking Status: Never smoker Frequency of Alcohol Use: None Type of Drug Use: None 12 point system: reviewed and no additional remarkable complaints except as stated Exam - Constitutional Vitals: Period Temp Pulse Resp BP Sys/Romero Pulse Ox Last 24 Hr 98.9 F-98.9 F 77-103 4-18 97-128/64-77 91-97 General appearance: no acute distress - Head Head exam: Present: normocephalic, atraumatic - Eye Eye exam: Present: EOMI Pupils: Present: TERESA - ENT ENT exam: Present: normal exam - Neck Neck exam: Present: normal inspection - Respiratory Respiratory exam: Present: clear to auscultation bilaterally. Absent: rhonchi, wheezes - Cardiovascular Cardiovascular exam: Present: irregular rhythm, other (recent pacemaker placement). Absent: gallop, rubs, systolic murmur - GI/Abdominal GI/Abdominal exam: Present: normal bowel sounds, soft. Absent: distended, firm , guarding, tenderness, rebound - Extremities Exam Extremities exam: Present: normal inspection. Absent: calf tenderness, edema - Neurological Exam Neurological exam: Present: alert. Absent: oriented X3 (oriented only to herself) Results - Labs CBC & BMP: 09/29/16 13:29 09/29/16 13:29 Lab Results: I have reviewed the past 24 hour labs
[2016-09-29] MEDS: ASPIRIN EC 81 MG TABLET PO SCH (20:50)
[2016-09-29] MEDS: PANTOPRAZOLE 40 MG TABLET PO SCH (20:50)
[2016-09-29] MEDS: CITALOPRAM 20 MG TABLET PO SCH (20:50)
[2016-09-29] MEDS ORDERED: ATORVASTATIN 20 MG TABLET PO SCH (21:00)
--- NOTE | 2016-09-30 03:48 | EKG Report ---
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
[2016-09-30 04:58] LABS: Basophils % 0.3 % (0.0-0.8); Hematocrit 31.4 VOL% (35.7-47.0); Hemoglobin 9.9 GM/DL (12.0-16.0); Immature Granulocytes % 0.4 %; Immature Granulocytes Absolute 0.03 #; Lymphocytes % 13.4 % (21.3-54.2); Mean Corpuscular HGB Conc 31.5 GM/DL (32-36); Mean Corpuscular Hemoglobin 29 PG (27-34); Mean Corpuscular Volume 91.3 FL (87-102); Monocytes # 0.5 10*3/uL (0.11-0.8); Monocytes % 7.4 % (1.7-12.7); Neutrophils # 5.7 10*3/uL (1.4-7.4); Neutrophils % 78.5 % (38.7-73.9); Platelet Count 183 T/CUMM (130-400); Red Blood Count 3.44 MC/CUMM (3.8-5.5); Red Cell Distribution Width 15.7 % (9.3-17.3); White Blood Count 7.3 T/CUMM (4-12)
[2016-09-30 05:25] LABS: Calcium 9.5 MG/DL (8.5-10.1); Osmolality,Calculated 284.1 MOS/KG (273-304); Potassium 3.6 MMOL/L (3.5-5.1)
[2016-09-30] MEDS: LEVOTHYROXINE 50 MCG TABLET PO SCH (07:18)
[2016-09-30] MEDS: ISOSORBIDE MONONITRATE 60 MG TABLET PO SCH (08:36)
[2016-09-30] MEDS: CITALOPRAM 20 MG TABLET PO SCH ×2 (08:36→21:07)
[2016-09-30] MEDS: METOPROLOL SUCCINATE XL 50 MG TABLET PO SCH (08:36)
--- NOTE | 2016-09-30 08:52 | Cardiology Consult Note ---
<Natalie Marques - Last Filed: 09/30/16 08:50> Assessment and Plan - Time spent with patient Time spent with patient: Greater than 30 minutes (1) Atypical chest pain Status: Acute Assessment and plan: SEE PLAN OF CARE LISTED BELOW Current Visit: Yes (2) Shortness of breath Status: Acute Assessment and plan: SEE PLAN OF CARE LISTED BELOW Current Visit: Yes (3) History of pacemaker Status: Chronic Assessment and plan: SEE PLAN OF CARE LISTED BELOW Current Visit: Yes (4) Dementia Status: Chronic Assessment and plan: SEE PLAN OF CARE LISTED BELOW Current Visit: No Qualifiers: Dementia type: Alzheimer's disease (5) Dyslipidemia Status: Chronic Assessment and plan: SEE PLAN OF CARE LISTED BELOW Current Visit: No (6) History of atrial fibrillation Status: Chronic Assessment and plan: SEE PLAN OF CARE LISTED BELOW Current Visit: No (7) Hypertension Status: Chronic Assessment and plan: SEE PLAN OF CARE LISTED BELOW Current Visit: Yes (8) Hypothyroidism Status: Chronic Assessment and plan: SEE PLAN OF CARE LISTED BELOW Current Visit: Yes (9) Chronic anticoagulation Status: Chronic Assessment and plan: SEE PLAN OF CARE LISTED BELOW Current Visit: Yes History of Present Illness - Data of Consult Patient: known to practice within the last 3 years Consult date: 09/30/16 Requesting Physician: Rubina Boothe Primary care physician: Narciso Valero - Consult Narrative Reason for consult: CHEST PAIN, PACEMAKER LAST WEEK History of present illness: Photocopying Machine Operator: Dr. Anaya PCP: Dr. Narciso Valero Ms. Langston is a 86 year old the code with a questionable history of coronary artery disease. She is routinely followed in the cardiology office by Dr. Anaya. Per patient report she had an CO around 2006 or 2007. However, I cannot find any record of this in the electronic medical record. No record of heart catheterization found. Patient has cardiac risk factors significant for hypertension, dyslipidemia, sedentary lifestyle and advanced age. Patient is a lifetime non-smoker. No significant family history of coronary artery disease noted. Patient is a past medical history of chronic atrial fibrillation ( chronically anticoagulated with Coumadin, managed per Dr. Narciso Valero), progressive dementia and sick sinus syndrome. She is status post single chamber pacemaker September 24, 2016. Patient had echocardiogram performed September 2016 which revealed mild concentric LVH with ejection fraction of 60-65%. Unable to determine diastolic parameters as patient has chronic atrial fibrillation. No regional wall abnormality. Mild aortic valve regurgitation and moderate MR noted. It appears that patient's most recent cardiac stress test performed in 2010 which did did not reveal any reversible ischemia. Patient was just recently discharged from the hospital last week after having single-chamber pacemaker placed for sick sinus syndrome. Patient is demented and confused. Therefore, obtaining history is extremely difficult. Majority of history and review of systems was obtained from family as her daughter was at bedside. She reports that she has been more confused and without appetite since being discharged. She developed shortness of breath and chest pain yesterday while sitting in her chair. Her daughter reports that she has been home taking care of her and became concerned. Therefore, they presented to the emergency department for further evaluation. Given patient's progressive dementia, I was unable to obtain a reliable review of systems. When asked where she was hurting yesterday, she points to her upper back. She denies experiencing any chest pain, heaviness or tightness. However, this is unreliable given her significant dementia. Patient has been admitted under hospitalist's service and housed in the telemetry unit. Cardiology has been consulted to further evaluate her chest discomfort. Patient was seen and examined on the telemetry unit. Patient now denies any chest pain, heaviness or tightness. When asked where she was hurting, she points to her back. Unsure whether or not she actually experienced any chest pain yesterday that she has significant history of progressive dementia. Cardiac biomarkers have been negative 2. EKG reveals chronic atrial fibrillation with ST depression in anterior leads. However, this is unchanged from previous EKG tracings. At this point, we will continue to cycle cardiac biomarkers and EKG. Patient most likely is on a great candidate for invasive cardiac workup as she is severely demented. I will further discuss with Dr. Vale and await his additional recommendations. ASSESSMENT/PLAN: 1. CHEST PAIN -patient now denies any chest pain, heaviness or tightness. When asked where she was hurting, she points to her back. Unsure whether or not she actually experienced any chest pain yesterday that she has significant history of progressive dementia. Cardiac biomarkers have been negative 2. EKG reveals chronic atrial fibrillation with ST depression in anterior leads. However, this is unchanged from previous EKG tracings. At this point, we will continue to cycle cardiac biomarkers and EKG. Patient most likely is on a great candidate for invasive cardiac workup as she is severely demented. I will further discuss with Dr. Vale and await his additional recommendations. 2. SHORTNESS OF BREATH - Patient just recently had echocardiogram in September 2016 which revealed preserved ejection fraction of 60- 65%. Diastolic function was unable to be determined due to her chronic atrial fibrillation. Chest x- ray this admission without signs of bairon pulmonary edema. BNP was only mildly elevated at 225. This could very well be mild diastolic heart failure. Will discuss with Dr. Vale and await his additional recommendations. 2. SICK SINUS SYNDROME - Patient is now status post single-chamber pacemaker last week per Dr. Neely. Pacer pocket is healing well without signs of infection. 3. ATRIAL FIBRILLATION, CHRONIC - Rate controlled on current medication regimen. Continue current plan of care. Chronically anticoagulated with Coumadin. Preadmission dose has been continued. Will monitor INR daily. INR today is slightly subtherapeutic at 1.7. 4. CHRONIC ANTICOAGULATION - Patient has history of chronic atrial fibrillation and is chronically into coagulated with Coumadin. Will monitor INR daily. This is normally managed per Dr. Narciso Valero at [facility] [place]. 5. DYSLIPIDEMIA - Continue current plan of care with lipid lowering agent. Will add lipid panel to a.m. labs. 6. HYPERTENSION - This is suboptimally controlled. I have increased patient' s ARB. Will further adjust as needed throughout her hospitalization in order to achieve blood pressure control 7. DEMENTIA - Continue current plan of care. 8. HYPOTHYROIDISM - Continue Synthroid. Defer further management of this to attending. CC: Anjelica Elizabeth MD - Home Medications and Allergies Home Medications: Home Medications Medication Instructions Recorded Confirmed Type Citalopram [CeleXA] 20 mg PO BID 08/13/14 09/29/16 History Isosorbide Mononitrate [Imdur] 60 mg PO DAILY 08/13/14 09/29/16 History Levothyroxine Tab [Synthroid Tab] 50 mcg PO DAILY 08/13/14 09/29/16 History Magnesium Chloride [Mag Delay] 64 mg PO TID 08/13/14 09/29/16 History Metoprolol Succinate Xl [Toprol Xl] 50 mg PO DAILY 08/13/14 09/29/16 History Omeprazole [Prilosec] 20 mg PO DAILY 08/13/14 09/29/16 History Simvastatin [Zocor] 10 mg PO BEDTIME 08/13/14 09/29/16 History traZODone [Desyrel] 100 mg PO BEDTIME 08/13/14 09/29/16 History Aspirin EC Tab 81 mg PO BEDTIME 10/27/15 09/29/16 History Atorvastatin [Lipitor] 20 mg PO BEDTIME #30 tablet 09/25/16 09/29/16 Rx Clindamycin HCl [Clindamycin Cap] 300 mg PO TID #15 capsule 09/25/16 09/29/16 Rx Losartan [Cozaar] 50 mg PO DAILY #30 tablet 09/25/16 09/29/16 Rx Pantoprazole Tab [Protonix Tab] 40 mg PO BEDTIME #30 tablet 09/25/16 09/29/16 Rx Acetaminophen 500 mg PO Q4HR 09/29/16 09/29/16 History Warfarin Sodium [Jantoven] 3 mg PO BEDTIME 09/29/16 09/29/16 History Allergies/Adverse Reactions: Allergies Allergy/AdvReac Type Severity Reaction Status Date / Time codeine Allergy Unknown/Unable Verified 09/29/16 12:28 to obtain hydrocodone Allergy Unknown/Unable Verified 09/29/16 12:28 to obtain nalbuphine [From Nubain] Allergy Unknown/Unable Verified 09/29/16 12:28 to obtain pentazocine [From Talwin] Allergy Unknown/Unable Verified 09/29/16 12:28 to obtain ROS unobtainable: due to dementia Medical,Surgical,& Family Hx - Medical History Cardio: History of: Cardiac Dysrhythmia (AFIB, permanent), Hypertension, CO, Pacemaker, Valvular Heart Disease, Cardiovascular Problems (a-fib) Psychological: History of: Depression Neurology: History of: Dementia Endocrine: History of: Dyslipidemia, Thyroid Disorder Gastrointestinal: History of: Diverticulitis/ Diverticulosis, GERD - Surgical History Cardiac Surgeries: Sugical HX of: Cardiac Surgery (pacemaker) Neurologic Surgeries: Patient denies: Neurologic Surgery Abdominal Surgeries: Surgical HX of: Abdominal Surgery Reproductive Surgeries: Surgical HX of;: Hysterectomy Orthopedic Surgeries: Surgical HX of;: Orthopedic Surgery (bilateral knees) - Family History Family History: Reports;: Family Cancer (father-prostate), Family Diabetes ( mother) - Social History Smoking Status: Never smoker Frequency of Alcohol Use: None Type of Drug Use: None Marital Status: Single Lives With:: Children Functional capacity: independent ambulation Physical Examination Vital Signs Temp Pulse Resp BP Pulse Ox 98.9 F 100 H 16 97/72 97 09/29/16 12:14 09/29/16 12:14 09/29/16 12:14 09/29/16 12:14 09/29/16 12:14 Exam: General: Appears well with no apparent distress. Pleasant and cooperative. Thin and frail. Pleasantly confused. HEENT: PERRL, normocephalic, atraumatic. Mucous membranes moist. No jaundice noted. Conjunctiva moist and clear, sclerae anicteric Neck: No JVD/HJR, no thyromegaly or lymphadenopathy noted. No carotid bruit appreciated Cardiac: Irregular rhythm, rate controlled. Lungs: Clear to auscultation without accessory muscle use to assist the respiratory pattern. Requiring oxygen intermittently via nasal cannula Abdomen: Soft, bowel sounds normoactive. Nontender and nondistended. No abdominal bruit or thrill noted. No masses noted. Extremities: No clubbing, cyanosis noted. Capillary refill less than 3 seconds. Skin: No unusual lesions or rashes. No skin breakdown appreciated. Pacer site looks good. Result/EKG - Labs CBC & BMP: 09/30/16 04:42 09/30/16 04:42 Lab Results: I have reviewed the past 24 hour labs Labs: Laboratory Results - last 24 hr 09/29/16 09/29/16 09/29/16 13:29 13:29 13:29 WBC RBC Hgb Hct MCV MCH MCHC RDW Plt Count MPV Neut % (Auto) Lymph % (Auto) [place] % (Auto) Eos % (Auto) Baso % (Auto) Neut # (Auto) Lymph # (Auto) [place] # (Auto) Eos # (Auto) Baso # (Auto) Immature Gran % Nucleated RBC % Immature Gran # Nucleated RBCs # INR 1.7 PT Patient/Control Mix 18.8 Sodium 143 Potassium 3.7 Chloride 106 Carbon Dioxide 30 Anion Gap 10.7 BUN 9 Creatinine 0.80 GFR Calculation 64 BUN/Creatinine Ratio 11.00 Glucose 105 Calculated Osmolality 283.0 Calcium 9.8 Magnesium 2.0 Total Bilirubin 0.80 AST 21 ALT 14 Alkaline Phosphatase 72 Troponin I B-Natriuretic Peptide 225 H Total Protein 6.4 Albumin 3.3 L Globulin 3.1 Albumin/Globulin Ratio 1.0 L Lipase 130.0 Urine Color Urine Appearance Urine pH Ur Specific Burt Urine Protein Urine Glucose (UA) Urine Ketones Urine Blood Urine Nitrate Urine Bilirubin Urine Urobilinogen Urine Leukocytes Urine RBC Urine WBC Ur Squamous Epith Cells Urine Bacteria Hyaline Casts Urine Mucus Ur Culture Indicated? 09/29/16 09/29/16 09/29/16 13:29 13:29 13:45 WBC 10.4 RBC 3.75 L Hgb 11.0 L Hct 33.8 L MCV 90.1 MCH 29 MCHC 32.5 RDW 15.9 Plt Count 185 MPV 9.9 Neut % (Auto) 78.7 H Lymph % (Auto) 12.5 L [place] % (Auto) 7.7 Eos % (Auto) 0.3 Baso % (Auto) 0.3 Neut # (Auto) 8.2 H Lymph # (Auto) 1.3 L [place] # (Auto) 0.8 Eos # (Auto) 0.0 Baso # (Auto) 0.0 Immature Gran % 0.5 Nucleated RBC % 0.0 Immature Gran # 0.05 Nucleated RBCs # 0.00 INR PT Patient/Control Mix Sodium Potassium Chloride Carbon Dioxide Anion Gap BUN Creatinine GFR Calculation BUN/Creatinine Ratio Glucose Calculated Osmolality Calcium Magnesium Total Bilirubin AST ALT Alkaline Phosphatase Troponin I < 0.015 B-Natriuretic Peptide Total Protein Albumin Globulin Albumin/Globulin Ratio Lipase Urine Color Yellow Urine Appearance Cloudy Urine pH 5.0 Ur Specific Burt 1.019 Urine Protein Negative Urine Glucose (UA) Negative Urine Ketones Negative Urine Blood Negative Urine Nitrate Negative Urine Bilirubin Negative Urine Urobilinogen < 2.0 H Urine Leukocytes Negative Urine RBC 5 Urine WBC 4 Ur Squamous Epith Cells Occasional Urine Bacteria Occasional Hyaline Casts 27 Urine Mucus Few Ur Culture Indicated? Not indicated 09/29/16 09/30/16 09/30/16 18:55 04:42 04:42 WBC 7.3 RBC 3.44 L Hgb 9.9 L Hct 31.4 L MCV 91.3 MCH 29 MCHC 31.5 L RDW 15.7 Plt Count 183 MPV 10.0 Neut % (Auto) 78.5 H Lymph % (Auto) 13.4 L [place] % (Auto) 7.4 Eos % (Auto) 0.0 Baso % (Auto) 0.3 Neut # (Auto) 5.7 Lymph # (Auto) 1.0 L [place] # (Auto) 0.5 Eos # (Auto) 0.0 Baso # (Auto) 0.0 Immature Gran % 0.4 Nucleated RBC % 0.0 Immature Gran # 0.03 Nucleated RBCs # 0.00 INR PT Patient/Control Mix Sodium 142 Potassium 3.6 Chloride 105 Carbon Dioxide 30 Anion Gap 10.6 BUN 12 Creatinine 0.70 GFR Calculation 76 BUN/Creatinine Ratio 17.00 Glucose 131 H Calculated Osmolality 284.1 Calcium 9.5 Magnesium Total Bilirubin AST ALT Alkaline Phosphatase Troponin I < 0.015 B-Natriuretic Peptide Total Protein Albumin Globulin Albumin/Globulin Ratio Lipase Urine Color Urine Appearance Urine pH Ur Specific Burt Urine Protein Urine Glucose (UA) Urine Ketones Urine Blood Urine Nitrate Urine Bilirubin Urine Urobilinogen Urine Leukocytes Urine RBC Urine WBC Ur Squamous Epith Cells Urine Bacteria Hyaline Casts Urine Mucus Ur Culture Indicated? - EKG EKG shows: atrial fibrillation <Earl Vale - Last Filed: 09/30/16 12:42> History of Present Illness - Consult Narrative History of present illness: Cardiology addendum. Patient examined chart reviewed and discussed with nurse Natalie Marques RN. Atypical chest pain while sitting in bed. Troponin negative 3. EKG shows atrial fib with right axis and right bundle branch block Chronic atrial fib. Status post single-chamber pacemaker September 24, 2016. Echo Doppler done last week showed ejection fraction of 60-65% with LVH, 1+ AI and mild MR and severe TR PA pressure 60 GE reflux Dementia Chronic anticoagulation Plan Lexiscan cardiac stress test in a.m. Findings and plan discussed with patient and with her daughter Capri. CC: Anjelica Elizabeth MD Physical Examination Vital Signs Temp Pulse Resp BP Pulse Ox 98.9 F 100 H 16 97/72 97 09/29/16 12:14 09/29/16 12:14 09/29/16 12:14 09/29/16 12:14 09/29/16 12:14 Result/EKG - Labs CBC & BMP: 09/30/16 04:42 09/30/16 04:42 Labs: Laboratory Results - last 24 hr 09/29/16 09/29/16 09/29/16 13:29 13:29 13:29 WBC RBC Hgb Hct MCV MCH MCHC RDW Plt Count MPV Neut % (Auto) Lymph % (Auto) [place] % (Auto) Eos % (Auto) Baso % (Auto) Neut # (Auto) Lymph # (Auto) [place] # (Auto) Eos # (Auto) Baso # (Auto) Immature Gran % Nucleated RBC % Immature Gran # Nucleated RBCs # INR 1.7 PT Patient/Control Mix 18.8 Sodium 143 Potassium 3.7 Chloride 106 Carbon Dioxide 30 Anion Gap 10.7 BUN 9 Creatinine 0.80 GFR Calculation 64 BUN/Creatinine Ratio 11.00 Glucose 105 Calculated Osmolality 283.0 Calcium 9.8 Magnesium 2.0 Total Bilirubin 0.80 AST 21 ALT 14 Alkaline Phosphatase 72 Total Creatine Kinase CK-MB (CK-2) Troponin I B-Natriuretic Peptide 225 H Total Protein 6.4 Albumin 3.3 L Globulin 3.1 Albumin/Globulin Ratio 1.0 L Lipase 130.0 Urine Color Urine Appearance Urine pH Ur Specific Burt Urine Protein Urine Glucose (UA) Urine Ketones Urine Blood Urine Nitrate Urine Bilirubin Urine Urobilinogen Urine Leukocytes Urine RBC Urine WBC Ur Squamous Epith Cells Urine Bacteria Hyaline Casts Urine Mucus Ur Culture Indicated? 09/29/16 09/29/16 09/29/16 13:29 13:29 13:45 WBC 10.4 RBC 3.75 L Hgb 11.0 L Hct 33.8 L MCV 90.1 MCH 29 MCHC 32.5 RDW 15.9 Plt Count 185 MPV 9.9 Neut % (Auto) 78.7 H Lymph % (Auto) 12.5 L [place] % (Auto) 7.7 Eos % (Auto) 0.3 Baso % (Auto) 0.3 Neut # (Auto) 8.2 H Lymph # (Auto) 1.3 L [place] # (Auto) 0.8 Eos # (Auto) 0.0 Baso # (Auto) 0.0 Immature Gran % 0.5 Nucleated RBC % 0.0 Immature Gran # 0.05 Nucleated RBCs # 0.00 INR PT Patient/Control Mix Sodium Potassium Chloride Carbon Dioxide Anion Gap BUN Creatinine GFR Calculation BUN/Creatinine Ratio Glucose Calculated Osmolality Calcium Magnesium Total Bilirubin AST ALT Alkaline Phosphatase Total Creatine Kinase CK-MB (CK-2) Troponin I < 0.015 B-Natriuretic Peptide Total Protein Albumin Globulin Albumin/Globulin Ratio Lipase Urine Color Yellow Urine Appearance Cloudy Urine pH 5.0 Ur Specific Burt 1.019 Urine Protein Negative Urine Glucose (UA) Negative Urine Ketones Negative Urine Blood Negative Urine Nitrate Negative Urine Bilirubin Negative Urine Urobilinogen < 2.0 H Urine Leukocytes Negative Urine RBC 5 Urine WBC 4 Ur Squamous Epith Cells Occasional Urine Bacteria Occasional Hyaline Casts 27 Urine Mucus Few Ur Culture Indicated? Not indicated 09/29/16 09/30/16 09/30/16 18:55 04:42 04:42 WBC 7.3 RBC 3.44 L Hgb 9.9 L Hct 31.4 L MCV 91.3 MCH 29 MCHC 31.5 L RDW 15.7 Plt Count 183 MPV 10.0 Neut % (Auto) 78.5 H Lymph % (Auto) 13.4 L [place] % (Auto) 7.4 Eos % (Auto) 0.0 Baso % (Auto) 0.3 Neut # (Auto) 5.7 Lymph # (Auto) 1.0 L [place] # (Auto) 0.5 Eos # (Auto) 0.0 Baso # (Auto) 0.0 Immature Gran % 0.4 Nucleated RBC % 0.0 Immature Gran # 0.03 Nucleated RBCs # 0.00 INR PT Patient/Control Mix Sodium 142 Potassium 3.6 Chloride 105 Carbon Dioxide 30 Anion Gap 10.6 BUN 12 Creatinine 0.70 GFR Calculation 76 BUN/Creatinine Ratio 17.00 Glucose 131 H Calculated Osmolality 284.1 Calcium 9.5 Magnesium Total Bilirubin AST ALT Alkaline Phosphatase Total Creatine Kinase CK-MB (CK-2) Troponin I < 0.015 B-Natriuretic Peptide Total Protein Albumin Globulin Albumin/Globulin Ratio Lipase Urine Color Urine Appearance Urine pH Ur Specific Burt Urine Protein Urine Glucose (UA) Urine Ketones Urine Blood Urine Nitrate Urine Bilirubin Urine Urobilinogen Urine Leukocytes Urine RBC Urine WBC Ur Squamous Epith Cells Urine Bacteria Hyaline Casts Urine Mucus Ur Culture Indicated? 09/30/16 10:01 WBC RBC Hgb Hct MCV MCH MCHC RDW Plt Count MPV Neut % (Auto) Lymph % (Auto) [place] % (Auto) Eos % (Auto) Baso % (Auto) Neut # (Auto) Lymph # (Auto) [place] # (Auto) Eos # (Auto) Baso # (Auto) Immature Gran % Nucleated RBC % Immature Gran # Nucleated RBCs # INR PT Patient/Control Mix Sodium Potassium Chloride Carbon Dioxide Anion Gap BUN Creatinine GFR Calculation BUN/Creatinine Ratio Glucose Calculated Osmolality Calcium Magnesium Total Bilirubin AST ALT Alkaline Phosphatase Total Creatine Kinase 93 CK-MB (CK-2) 1.8 Troponin I < 0.015 B-Natriuretic Peptide Total Protein Albumin Globulin Albumin/Globulin Ratio Lipase Urine Color Urine Appearance Urine pH Ur Specific Burt Urine Protein Urine Glucose (UA) Urine Ketones Urine Blood Urine Nitrate Urine Bilirubin Urine Urobilinogen Urine Leukocytes Urine RBC Urine WBC Ur Squamous Epith Cells Urine Bacteria Hyaline Casts Urine Mucus Ur Culture Indicated?
[2016-09-30] MEDS ORDERED: LOSARTAN 50 MG TABLET PO SCH (09:00)
[2016-09-30] MEDS ORDERED: NON-FORMULARY MEDICATION (Omeprazole [Prilosec] 20 MG) PO SCH (09:00)
[2016-09-30] MEDS ORDERED: LOSARTAN 25 MG TABLET PO SCH (09:27)
[2016-09-30] MEDS: SIMVASTATIN 10 MG TABLET PO SCH ×2 (09:48→21:07)
[2016-09-30 10:51] LABS: Troponin I Only < 0.015 NG/ML (0.00-0.045)
--- NOTE | 2016-09-30 14:57 | Hospitalist Progress Note ---
Assessment and Plan (1) Chest pain Status: Acute Assessment and plan: 1)chest pain- no longer complaining of this. She is sore at pacemaker site. Her daughter is concerned that the chemical stress test may be too dangerous for her and also whether she should have an EGD to check on her longstanding hiatal hernia. Idiscussed this with the daughter and the rest of the family. She wants to have CAD ruled out and agreed that the stress test was the safest way to do that. Also since she has no problems swallowing or eating an EGD would be premature at this point. I recommend allowing her to recover form pacemaker and let that soreness resolve while monitoring her eating and if she has a problem that warrants sedating her for EGD then she should have one at that time. 2)dementia 3)dispo- to swing bed if accepted. PT to see. recent 3 midnight stay. Current Visit: No (2) Dementia Status: Chronic Current Visit: No Qualifiers: Dementia type: Alzheimer's disease (3) History of atrial fibrillation Status: Chronic Current Visit: No Hospitalist: Subjective Interval history: Mrs Langston is doing well this afternoon. Her daughter has discussed swing bed placement with the porter sample case. No further cardiac workup planned at this time but I'm not sure Dr Vale has seen her yet and may have other plans. Exam - Constitutional Vitals: Period Temp Pulse Resp BP Sys/Romero Pulse Ox Last 24 Hr 97.1 F-99.9 F 71-119 16-20 100-172/64-108 92-141 General appearance: normal weight, no acute distress - Eye Eye exam: Present: EOMI. Absent: scleral icterus - Respiratory Respiratory exam: Present: clear to auscultation bilaterally - Cardiovascular Cardiovascular exam: Present: regular rate and rhythm - GI/Abdominal GI/Abdominal exam: Present: normal bowel sounds, soft. Absent: tenderness - Extremities Exam Extremities exam: Absent: edema Results - Labs CBC & BMP: 09/30/16 04:42 09/30/16 04:42 Lab Results: I have reviewed the past 24 hour labs
[2016-09-30 17:38] LABS: Troponin I Only < 0.015 NG/ML (0.00-0.045)
[2016-09-30] MEDS: WARFARIN 3 MG TABLET PO SCH (17:53)
[2016-09-30] MEDS: PANTOPRAZOLE 40 MG TABLET PO SCH (21:07)
[2016-09-30] MEDS: ASPIRIN EC 81 MG TABLET PO SCH (21:07)
[2016-09-30] MEDS: traZODone 50 MG TABLET PO SCH (21:07)
[2016-10-01 05:07] LABS: Basophils % 0.5 % (0.0-0.8); Eosinophils # 0.1 10*3/uL (0.0-0.87); Eosinophils % 1.1 % (0.00-10.9); Hemoglobin 9.6 GM/DL (12.0-16.0); Immature Granulocytes % 0.5 %; Immature Granulocytes Absolute 0.03 #; Lymphocytes # 1.4 10*3/uL (1.4-4.0); Lymphocytes % 20.9 % (21.3-54.2); Mean Corpuscular Hemoglobin 29 PG (27-34); Mean Corpuscular Volume 90.6 FL (87-102); Mean Platelet Volume 10.4 FL (9.6-12.0); Monocytes # 0.6 10*3/uL (0.11-0.8); Monocytes % 9.5 % (1.7-12.7); Neutrophils # 4.4 10*3/uL (1.4-7.4); Neutrophils % 67.5 % (38.7-73.9); Platelet Count 185 T/CUMM (130-400); Red Blood Count 3.31 MC/CUMM (3.8-5.5); Red Cell Distribution Width 15.8 % (9.3-17.3); White Blood Count 6.5 T/CUMM (4-12)
[2016-10-01 05:19] LABS: INR 1.6; PT Patient Result 17.3 SECS
[2016-10-01 05:41] LABS: Calcium 9.2 MG/DL (8.5-10.1); Magnesium 1.7 MG/DL (1.8-2.4); Osmolality,Calculated 274.5 MOS/KG (273-304); Potassium 3.4 MMOL/L (3.5-5.1)
[2016-10-01 06:03] LABS: Risk Ratio 2.6; VLDL CHOLESTEROL 19.8 MG/DL
[2016-10-01] MEDS: LEVOTHYROXINE 50 MCG TABLET PO SCH (06:13)
--- NOTE | 2016-10-01 07:24 | EKG Report ---
Stationary ECG Study [facility] Test Date: 10/01/2016 7:23:25 AM Pat Name: DEVYN GONZALEZ Department: Room: 283 Gender: F Coal Unloader: ROMI : 1930 Requested by: Natalie Marques Order Number: [id number] Reading MD: JAZMINE VIVAR Intervals [place] Rate: 82 P: 999 [place]: 0 QRS: -68 QRSD: 177 T: 19 QT: 419 QTc: 458 Interpretive Statements ATRIAL FIBRILLATION RIGHT BUNDLE BRANCH BLOCK LEFT ANTERIOR FASCICULAR BLOCK Electronically Signed On 10-01-16 12:18:37 CDT by JAZMINE VIVAR [email or web address]
[2016-10-01] MEDS ORDERED: POTASSIUM CHLORIDE 20 MEQ TABLET PO ONE (08:00)
--- NOTE | 2016-10-01 08:01 | Discharge Summary ---
Hospital Course - Hospital Course Hospital Course: Mrs Langston came to the hospital with atypical chest pain a few days after pacemaker was placed. She ruled out for HI and her stress test is low risk fo rischemia. Dr Vale has seen her and addressed her family's concerns. Her dementia is at baseline. She will benefit from PT and OT. Her afib is rate controlled. She will go to swing bed today. - Time spent with patient Time with patient DS: Greater than 30 minutes (medicine reconciliation, documentation, discharge planning and coordination.) Diagnosis - Discharge Diagnosis (1) Chest pain Status: Resolved (2) Dementia Status: Chronic (3) History of atrial fibrillation Status: Chronic Specialty Discharge - Follow Up or Referrals Follow up with: Alisson Anaya DO [Physician] - Narciso Valero MD [Primary Care Provider] - 1 Week Discharge Plan - Discharge Data Disposition: Disch/Xfer to Snf Condition at Discharge: Stable Activity: as per physical therapy - Discharge Medications Continue traZODone [Desyrel] 100 mg PO BEDTIME Simvastatin [Zocor] 10 mg PO BEDTIME Isosorbide Mononitrate [Imdur] 60 mg PO DAILY Levothyroxine Tab [Synthroid Tab] 50 mcg PO DAILY Citalopram [CeleXA] 20 mg PO BID Omeprazole [Prilosec] 20 mg PO DAILY Metoprolol Succinate Xl [Toprol Xl] 50 mg PO DAILY Magnesium Chloride [Mag Delay] 64 mg PO TID Aspirin EC Tab 81 mg PO BEDTIME Losartan [Cozaar] 50 mg PO DAILY #30 tablet Pantoprazole Tab [Protonix Tab] 40 mg PO BEDTIME #30 tablet Atorvastatin [Lipitor] 20 mg PO BEDTIME #30 tablet Warfarin Sodium [Jantoven] 3 mg PO BEDTIME Acetaminophen 500 mg PO Q4HR Discontinued Clindamycin HCl [Clindamycin Cap] 300 mg PO TID #15 capsule - Follow Up or Referral Follow Up: Narciso Valero MD [Primary Care Provider] - 1 Week Alisson Anaya DO [Physician] - - Forms/Instructions Exam - Constitutional Vitals: Period Temp Pulse Resp BP Sys/Romero Pulse Ox Last 24 Hr 97.2 F-99.7 F 71-98 12-20 143-174/76-112 90-95 General appearance: normal weight, no acute distress - Eye Eye exam: Present: EOMI. Absent: scleral icterus - Respiratory Respiratory exam: Present: clear to auscultation bilaterally - Cardiovascular Cardiovascular exam: Present: regular rate and rhythm - GI/Abdominal GI/Abdominal exam: Present: normal bowel sounds, soft. Absent: tenderness - Extremities Exam Extremities exam: Absent: edema Discharge Results Procedures and tests throughout hospitalization: Pending Orders 10/01/16 04:00 NM bertha perf SPECT rest or str IN AM 10/02/16 04:00 BMP w/ Mg [Basic Metabolic Panel w/Mg] IN AM CBC [Comp Blood Count Auto Diff] IN AM Prothrombin Time INR IN AM 10/03/16 04:00 BMP w/ Mg [Basic Metabolic Panel w/Mg] IN AM CBC [Comp Blood Count Auto Diff] IN AM Prothrombin Time INR IN AM 10/04/16 04:00 BMP w/ Mg [Basic Metabolic Panel w/Mg] IN AM CBC [Comp Blood Count Auto Diff] IN AM Prothrombin Time INR IN AM Labs on day of discharge: Labs from last 24 hours 10/01/16 10/01/16 10/01/16 03:12 03:12 03:12 WBC 6.5 RBC 3.31 L Hgb 9.6 L Hct 30.0 L MCV 90.6 MCH 29 MCHC 32.0 RDW 15.8 Plt Count 185 MPV 10.4 Neut % (Auto) 67.5 Lymph % (Auto) 20.9 L [place] % (Auto) 9.5 Eos % (Auto) 1.1 Baso % (Auto) 0.5 Neut # (Auto) 4.4 Lymph # (Auto) 1.4 [place] # (Auto) 0.6 Eos # (Auto) 0.1 Baso # (Auto) 0.0 Immature Gran % 0.5 Nucleated RBC % 0.0 Immature Gran # 0.03 Nucleated RBCs # 0.00 INR 1.6 PT Patient/Control Mix 17.3 Sodium 139 Potassium 3.4 L Chloride 100 Carbon Dioxide 30 Anion Gap 12.4 BUN 11 Creatinine 0.60 GFR Calculation 80 BUN/Creatinine Ratio 18.00 Glucose 88 Calculated Osmolality 274.5 Calcium 9.2 Magnesium 1.7 L Total Creatine Kinase CK-MB (CK-2) Troponin I Triglycerides Cholesterol LDL Cholesterol VLDL Cholesterol HDL Cholesterol Heart Disease Risk Ratio 10/01/16 09/30/16 09/30/16 03:12 17:02 10:01 WBC RBC Hgb Hct MCV MCH MCHC RDW Plt Count MPV Neut % (Auto) Lymph % (Auto) [place] % (Auto) Eos % (Auto) Baso % (Auto) Neut # (Auto) Lymph # (Auto) [place] # (Auto) Eos # (Auto) Baso # (Auto) Immature Gran % Nucleated RBC % Immature Gran # Nucleated RBCs # INR PT Patient/Control Mix Sodium Potassium Chloride Carbon Dioxide Anion Gap BUN Creatinine GFR Calculation BUN/Creatinine Ratio Glucose Calculated Osmolality Calcium Magnesium Total Creatine Kinase 100 93 CK-MB (CK-2) 2.6 1.8 Troponin I < 0.015 < 0.015 Triglycerides 99 Cholesterol 117 LDL Cholesterol 59.0 VLDL Cholesterol 19.8 HDL Cholesterol 45 Heart Disease Risk Ratio 2.60 DS: Provider Date of admission: 09/29/16 16:48 Primary care physician: Narciso Valero MD Attending physician on admission: Joseph Lopez MD Consults: 09/29/16 18:04 Consult to Physician [CONS] Routine Comment: Recent pacemaker placement, chest pain Consulting Provider: Cardiology - [facility] Consult to Specialist Group: Cardiology When should Consulting Provider be notified: Now Person Notified: PRIETO Date Notified: 09/30/16 Time Notified: 07:30 Consult Notification Comment: called to [facility] at [id number] 09/30/16 15:09 Consult to Physical Therapy [CONS] Routine Reason for Physical Therapy: Evaluate and Treat Discharging clinician: Anjelica Elizabeth MD
--- NOTE | 2016-10-01 10:28 | Cardiology Progress Note ---
<Natalie Marques - Last Filed: 10/01/16 10:15> Assessment and Plan (1) Atypical chest pain Status: Acute Assessment and plan: SEE PLAN OF CARE LISTED BELOW Current Visit: Yes (2) Shortness of breath Status: Acute Assessment and plan: SEE PLAN OF CARE LISTED BELOW Current Visit: Yes (3) History of pacemaker Status: Chronic Assessment and plan: SEE PLAN OF CARE LISTED BELOW Current Visit: Yes (4) Dementia Status: Chronic Assessment and plan: SEE PLAN OF CARE LISTED BELOW Current Visit: No Qualifiers: Dementia type: Alzheimer's disease (5) Dyslipidemia Status: Chronic Assessment and plan: SEE PLAN OF CARE LISTED BELOW Current Visit: No (6) History of atrial fibrillation Status: Chronic Assessment and plan: SEE PLAN OF CARE LISTED BELOW Current Visit: No (7) Hypertension Status: Chronic Assessment and plan: SEE PLAN OF CARE LISTED BELOW Current Visit: Yes (8) Hypothyroidism Status: Chronic Assessment and plan: SEE PLAN OF CARE LISTED BELOW Current Visit: Yes (9) Chronic anticoagulation Status: Chronic Assessment and plan: SEE PLAN OF CARE LISTED BELOW Current Visit: Yes Cardiology - PN: Subj Interval history: [facility] Cleaner: Dr. Anaya PCP: Dr. Narciso Valero SUMMARY - Ms. Langston is a 86 year old the code with a past medical history of chronic atrial fibrillation (chronically anticoagulated with Coumadin, managed per Dr. Narciso Valero), hypertension, dyslipidemia, progressive dementia and sick sinus syndrome (status post single-chamber pacemaker September 24, 2016.) Patient had echocardiogram performed September 2016 which revealed mild concentric LVH with ejection fraction of 60-65%. Unable to determine diastolic parameters as patient has chronic atrial fibrillation. No regional wall abnormality. Mild aortic valve regurgitation and moderate MR noted. She presented to [facility] 09/29/16 with complaints of atypical chest pain. Patient will undergo cardiac stress testing today. OCTOBER 01, 2016: Patient was seen and examined this morning. She is without chest pain, heaviness and tightness. She seems to be a little more confused today than yesterday. However, she does have history of progressive dementia. Cardiac biomarkers have remained negative and EKG is unchanged. Patient's blood pressure appears to be suboptimally controlled this morning. I will increase her Cozaar this morning. Patient will undergo cardiac stress testing today. If cardiac stress testing does not reveal any reversible ischemia, patient will be stable for discharge home from a cardiac standpoint. Pacemaker pocket looks good without signs of infection. Will discuss with Dr. Vale and await his additional examinations ASSESSMENT/PLAN: 1. ATYPICAL CHEST PAIN - Patient denies chest pain, heaviness and tightness today. Patient underwent cardiac stress testing this morning. Awaiting results. Patient may be stable for discharge later this afternoon depending on stress testing results. 2. SHORTNESS OF BREATH - Patient just recently had echocardiogram in September 2016 which revealed preserved ejection fraction of 60- 65%. Diastolic function was unable to be determined due to her chronic atrial fibrillation. Chest x- ray this admission without signs of bairon pulmonary edema. BNP was only mildly elevated at 225. This could very well be mild diastolic heart failure. Will discuss with Dr. Vale and await his additional recommendations. 2. SICK SINUS SYNDROME - Patient is now status post single-chamber pacemaker last week per Dr. Neely. Pacer pocket is healing well without signs of infection. 3. ATRIAL FIBRILLATION, CHRONIC - Rate controlled on current medication regimen. Continue current plan of care. Chronically anticoagulated with Coumadin. Preadmission dose has been continued. Will monitor INR daily. INR today is slightly subtherapeutic at 1.6. 4. CHRONIC ANTICOAGULATION - Patient has history of chronic atrial fibrillation and is chronically into coagulated with Coumadin. Will monitor INR daily. This is normally managed [place]. Narciso [facility] [place] [facility]. 5. DYSLIPIDEMIA - Continue current plan of care with lipid lowering agent. Lipid panel reviewed. Unremarkable. 6. HYPERTENSION -this continues to be suboptimally controlled this morning. I have increased her Cozaar dose. We will continue to monitor. 7. DEMENTIA - Continue current plan of care. 8. HYPOTHYROIDISM - Continue Synthroid. Defer further management of this to attending. Exam (Progress Note) - Constitutional Vitals: Period Temp Pulse Resp BP Sys/Romero Pulse Ox Last 24 Hr 97.2 F-99.7 F 71-98 12-20 143-174/76-112 90-95 Exam: General: Appears well with no apparent distress. Pleasant and cooperative. Thin and frail. Pleasantly confused. HEENT: PERRL, normocephalic, atraumatic. Mucous membranes moist. No jaundice noted. Conjunctiva moist and clear, sclerae anicteric Neck: No JVD/HJR, no thyromegaly or lymphadenopathy noted. No carotid bruit appreciated Cardiac: Irregular rhythm, rate controlled. Lungs: Clear to auscultation without accessory muscle use to assist the respiratory pattern. Requiring oxygen intermittently via nasal cannula Abdomen: Soft, bowel sounds normoactive. Nontender and nondistended. No abdominal bruit or thrill noted. No masses noted. Extremities: No clubbing, cyanosis noted. Capillary refill less than 3 seconds. Skin: No unusual lesions or rashes. No skin breakdown appreciated. Pacer site looks good. Result/EKG - Labs CBC & BMP: 10/01/16 03:12 10/01/16 03:12 Lab Results: I have reviewed the past 24 hour labs Labs: Laboratory Results - last 24 hr 09/30/16 09/30/16 10/01/16 10:01 17:02 03:12 WBC RBC Hgb Hct MCV MCH MCHC RDW Plt Count MPV Neut % (Auto) Lymph % (Auto) [place] % (Auto) Eos % (Auto) Baso % (Auto) Neut # (Auto) Lymph # (Auto) [place] # (Auto) Eos # (Auto) Baso # (Auto) Immature Gran % Nucleated RBC % Immature Gran # Nucleated RBCs # INR PT Patient/Control Mix Sodium Potassium Chloride Carbon Dioxide Anion Gap BUN Creatinine GFR Calculation BUN/Creatinine Ratio Glucose Calculated Osmolality Calcium Magnesium Total Creatine Kinase 93 100 CK-MB (CK-2) 1.8 2.6 Troponin I < 0.015 < 0.015 Triglycerides 99 Cholesterol 117 LDL Cholesterol 59.0 VLDL Cholesterol 19.8 HDL Cholesterol 45 Heart Disease Risk Ratio 2.60 10/01/16 10/01/16 10/01/16 03:12 03:12 03:12 WBC 6.5 RBC 3.31 L Hgb 9.6 L Hct 30.0 L MCV 90.6 MCH 29 MCHC 32.0 RDW 15.8 Plt Count 185 MPV 10.4 Neut % (Auto) 67.5 Lymph % (Auto) 20.9 L [place] % (Auto) 9.5 Eos % (Auto) 1.1 Baso % (Auto) 0.5 Neut # (Auto) 4.4 Lymph # (Auto) 1.4 [place] # (Auto) 0.6 Eos # (Auto) 0.1 Baso # (Auto) 0.0 Immature Gran % 0.5 Nucleated RBC % 0.0 Immature Gran # 0.03 Nucleated RBCs # 0.00 INR 1.6 PT Patient/Control Mix 17.3 Sodium 139 Potassium 3.4 L Chloride 100 Carbon Dioxide 30 Anion Gap 12.4 BUN 11 Creatinine 0.60 GFR Calculation 80 BUN/Creatinine Ratio 18.00 Glucose 88 Calculated Osmolality 274.5 Calcium 9.2 Magnesium 1.7 L Total Creatine Kinase CK-MB (CK-2) Troponin I Triglycerides Cholesterol LDL Cholesterol VLDL Cholesterol HDL Cholesterol Heart Disease Risk Ratio Specialty Discharge - Follow Up or Referrals Follow up with: Narciso Valero MD [Primary Care Provider] - 1 Week Alisson Anaya DO [Physician] - <Earl Vale - Last Filed: 10/01/16 12:20> Cardiology - PN: Subj Interval history: Cardiology addendum. Normal Lexiscan cardiac stress test. Ejection fraction 63% normal. Low risk scan. Patient and daughter have been reassured. Agree with discharge Exam (Progress Note) - Constitutional Vitals: Period Temp Pulse Resp BP Sys/Romero Pulse Ox Last 24 Hr 97.2 F-99.7 F 80-98 12-20 146-185/87-112 90-95 Result/EKG - Labs CBC & BMP: 10/01/16 03:12 10/01/16 03:12 Labs: Laboratory Results - last 24 hr 09/30/16 10/01/16 10/01/16 17:02 03:12 03:12 WBC 6.5 RBC 3.31 L Hgb 9.6 L Hct 30.0 L MCV 90.6 MCH 29 MCHC 32.0 RDW 15.8 Plt Count 185 MPV 10.4 Neut % (Auto) 67.5 Lymph % (Auto) 20.9 L [place] % (Auto) 9.5 Eos % (Auto) 1.1 Baso % (Auto) 0.5 Neut # (Auto) 4.4 Lymph # (Auto) 1.4 [place] # (Auto) 0.6 Eos # (Auto) 0.1 Baso # (Auto) 0.0 Immature Gran % 0.5 Nucleated RBC % 0.0 Immature Gran # 0.03 Nucleated RBCs # 0.00 INR PT Patient/Control Mix Sodium Potassium Chloride Carbon Dioxide Anion Gap BUN Creatinine GFR Calculation BUN/Creatinine Ratio Glucose Calculated Osmolality Calcium Magnesium Total Creatine Kinase 100 CK-MB (CK-2) 2.6 Troponin I < 0.015 Triglycerides 99 Cholesterol 117 LDL Cholesterol 59.0 VLDL Cholesterol 19.8 HDL Cholesterol 45 Heart Disease Risk Ratio 2.60 10/01/16 10/01/16 03:12 03:12 WBC RBC Hgb Hct MCV MCH MCHC RDW Plt Count MPV Neut % (Auto) Lymph % (Auto) [place] % (Auto) Eos % (Auto) Baso % (Auto) Neut # (Auto) Lymph # (Auto) [place] # (Auto) Eos # (Auto) Baso # (Auto) Immature Gran % Nucleated RBC % Immature Gran # Nucleated RBCs # INR 1.6 PT Patient/Control Mix 17.3 Sodium 139 Potassium 3.4 L Chloride 100 Carbon Dioxide 30 Anion Gap 12.4 BUN 11 Creatinine 0.60 GFR Calculation 80 BUN/Creatinine Ratio 18.00 Glucose 88 Calculated Osmolality 274.5 Calcium 9.2 Magnesium 1.7 L Total Creatine Kinase CK-MB (CK-2) Troponin I Triglycerides Cholesterol LDL Cholesterol VLDL Cholesterol HDL Cholesterol Heart Disease Risk Ratio
--- NOTE | 2016-10-01 10:31 | Event Note ---
Patient underwent Lexiscan cardiolite stress testing due to exercise intolerance and gait instability. Patient had no significant EKG changes noted. Blood pressure responded appropriately. Patient had mild nausea. No chest pain, shortness of breath, dizziness, lightheadedness, or syncope. Patient now to nuclear medicine for final scan. Dr. Vale to read, interpret, and advise.
[2016-10-01] MEDS: ISOSORBIDE MONONITRATE 60 MG TABLET PO SCH (10:59)
[2016-10-01] MEDS: METOPROLOL SUCCINATE XL 50 MG TABLET PO SCH (11:00)
[2016-10-01] MEDS: LOSARTAN 50 MG TABLET PO SCH (11:00)
[2016-10-01] MEDS: CITALOPRAM 20 MG TABLET PO SCH ×2 (11:00→22:31)
[2016-10-01] MEDS ORDERED: REGADENOSON 0.4 MG/5 ML SYRINGE IV ONE (11:21)
--- NOTE | 2016-10-01 15:37 | Nuclear Medicine Report ---
DATE: 10/01/2016 PROCEDURE: LEXISCAN CARDIOLITE GATED SPECT PERFUSION STUDY. INITIAL IMPRESSION: 1. AN 86-YEAR-OLD WITH ATYPICAL CHEST PAIN. 2. ABNORMAL EKG. 3. HYPERTENSION. FINAL IMPRESSION: NORMAL LEXISCAN CARDIOLITE GATED SPECT PERFUSION STUDY. I. DESCRIPTION OF PROCEDURE: The patient received 10.0 mCi of Technetium-99m Cardiolite IV and rest imaging was obtained in the routine manner 20 minutes later. The patient then received 0.4 mg IV Le xiscan, followed by 30.0 mCi of Technetium-99m Cardiolite IV and pharmacologic stress imaging was obt ained in the routine manner 20 minutes later. Serial electrocardiograms were performed. The initial blood pressure was 150/89 and 239/80 immediate post exercise. The peak heart rate obtained was 130. II: RESULTS: The patient had no chest pain or arrhythmias and tolerated Lexiscan infusion well. Th e resting EKG demonstrates atrial fibrillation with left axis deviation, right bundle branch block an d diffused ST-T-wave changes. With pharmacologic stress, no diagnostic EKG changes occurred. No arr hythmias. Tomographic imaging demonstrates homogeneous uptake of radioisotope at all segments. There is no chas dence for ischemia or scar. Gated SPECT imaging demonstrates normal wall motion and thickening in al l segments. The calculated ejection fraction is 57%. III: FINAL IMPRESSION: 1. CLINICALLY AND ELECTROCARDIOGRAPHICALLY NEGATIVE. 2. SCINTIGRAPHICALLY NORMAL PERFUSION STUDY. IV. DISPOSITION: The patient should be reassured regarding the lack of any evidence for significant coronary artery disease at this time. She had no chest pain or diagnostic EKG changes and tomograph ic imaging is normal. In addition, ventricular function is well preserved, ejection fraction of 57%. She remains well revascularized. Continued medical therapy and risk factor modification recommende d. Procedure performed and interpreted at [facility] Department of Radiology.
--- NOTE | 2016-10-01 16:48 | Hospitalist Progress Note ---
Assessment and Plan (1) Chest pain Status: Acute Assessment and plan: 1)chest pain- no more complaints of this. Stress test negative. eating well. low grade temp once on admission, none since and no sign of infection. 2)dementia 3)dispo- to swing bed if accepted. PT has seen now. recent 3 midnight stay. Current Visit: No (2) Dementia Status: Chronic Current Visit: No Qualifiers: Dementia type: Alzheimer's disease (3) History of atrial fibrillation Status: Chronic Current Visit: No Hospitalist: Subjective Interval history: Ms Langston is feeling well.Her stress test was normal. Her daughters take care of her. They are willing to go home with home health PT and outpatient eval for swing bed if she is not accepted today. We are waiting on response from swing bed in [place] at this point. Exam - Constitutional Vitals: Period Temp Pulse Resp BP Sys/Romero Pulse Ox Last 24 Hr 96.8 F-98.8 F 74-98 12-20 156-185/89-112 93-95 General appearance: no acute distress - Eye Eye exam: Present: EOMI. Absent: scleral icterus - Respiratory Respiratory exam: Present: clear to auscultation bilaterally - Cardiovascular Cardiovascular exam: Present: regular rate and rhythm - GI/Abdominal GI/Abdominal exam: Present: normal bowel sounds, soft - Extremities Exam Extremities exam: Absent: edema Results - Labs CBC & BMP: 10/01/16 03:12 10/01/16 03:12 Specialty Discharge - Follow Up or Referrals Follow up with: Narciso Valero MD [Primary Care Provider] - 1 Week Alisson Anaya DO [Physician] -
[2016-10-01] MEDS: WARFARIN 3 MG TABLET PO SCH (17:33)
[2016-10-01] MEDS: SIMVASTATIN 10 MG TABLET PO SCH (22:31)
[2016-10-01] MEDS: traZODone 50 MG TABLET PO SCH (22:31)
[2016-10-01] MEDS: PANTOPRAZOLE 40 MG TABLET PO SCH (22:32)
[2016-10-01] MEDS: ASPIRIN EC 81 MG TABLET PO SCH (22:32)
[2016-10-02 06:07] LABS: Basophils % 0.6 % (0.0-0.8); Eosinophils # 0.1 10*3/uL (0.0-0.87); Eosinophils % 1.5 % (0.00-10.9); Hematocrit 35.2 VOL% (35.7-47.0); Hemoglobin 11.3 GM/DL (12.0-16.0); Immature Granulocytes % 0.3 %; Immature Granulocytes Absolute 0.02 #; Lymphocytes # 1.3 10*3/uL (1.4-4.0); Lymphocytes % 20.2 % (21.3-54.2); Mean Corpuscular HGB Conc 32.1 GM/DL (32-36); Mean Corpuscular Hemoglobin 29 PG (27-34); Mean Corpuscular Volume 89.6 FL (87-102); Mean Platelet Volume 9.8 FL (9.6-12.0); Monocytes # 0.6 10*3/uL (0.11-0.8); Monocytes % 10.2 % (1.7-12.7); Neutrophils # 4.2 10*3/uL (1.4-7.4); Neutrophils % 67.2 % (38.7-73.9); Platelet Count 202 T/CUMM (130-400); Red Blood Count 3.93 MC/CUMM (3.8-5.5); White Blood Count 6.2 T/CUMM (4-12)
[2016-10-02 06:25] LABS: INR 1.7; PT Patient Result 19.1 SECS
[2016-10-02 06:36] LABS: Calcium 10.1 MG/DL (8.5-10.1); Magnesium 1.8 MG/DL (1.8-2.4); Osmolality,Calculated 279.3 MOS/KG (273-304); Potassium 2.9 MMOL/L (3.5-5.1)
[2016-10-02] MEDS: LEVOTHYROXINE 50 MCG TABLET PO SCH (06:40)
[2016-10-02] MEDS: ISOSORBIDE MONONITRATE 60 MG TABLET PO SCH (08:39)
[2016-10-02] MEDS: LOSARTAN 50 MG TABLET PO SCH (08:39)
[2016-10-02] MEDS: METOPROLOL SUCCINATE XL 50 MG TABLET PO SCH (08:40)
[2016-10-02] MEDS: CITALOPRAM 20 MG TABLET PO SCH (08:40)
--- NOTE | 2016-10-02 10:29 | Cardiology Progress Note ---
Cardiology - PN: Subj Interval history: Cardiology note 86-year-old with chronic atrial fibrillation status post recent pacemaker. Normal Lexiscan cardiac stress test EF 57%. Noncardiac chest pain. Irregular rhythm soft systolic murmur Decreased breath sounds but clear Pacemaker pocket looks good no hematoma nontender No leg edema Plan Transfer to [facility] bed today Chronic anticoagulation Wound check/pacemaker interrogation scheduled in office. Discussed with daughter Mell Exam (Progress Note) - Constitutional Vitals: Period Temp Pulse Resp BP Sys/Romero Pulse Ox Last 24 Hr 96.8 F-99.4 F 54-92 12-20 156-187/89-107 93-98 Result/EKG - Labs CBC & BMP: 10/02/16 05:03 10/02/16 05:03 Labs: Laboratory Results - last 24 hr 10/02/16 10/02/16 10/02/16 05:03 05:03 05:03 WBC 6.2 RBC 3.93 Hgb 11.3 L Hct 35.2 L MCV 89.6 MCH 29 MCHC 32.1 RDW 16.0 Plt Count 202 MPV 9.8 Neut % (Auto) 67.2 Lymph % (Auto) 20.2 L [place] % (Auto) 10.2 Eos % (Auto) 1.5 Baso % (Auto) 0.6 Neut # (Auto) 4.2 Lymph # (Auto) 1.3 L [place] # (Auto) 0.6 Eos # (Auto) 0.1 Baso # (Auto) 0.0 Immature Gran % 0.3 Nucleated RBC % 0.0 Immature Gran # 0.02 Nucleated RBCs # 0.00 INR 1.7 PT Patient/Control Mix 19.1 Sodium 141 Potassium 2.9 L Chloride 100 Carbon Dioxide 35 H Anion Gap 8.9 BUN 10 Creatinine 0.60 GFR Calculation 84 BUN/Creatinine Ratio 16.00 Glucose 93 Calculated Osmolality 279.3 Calcium 10.1 Magnesium 1.8 Specialty Discharge - Follow Up or Referrals Follow up with: Narciso Valero MD [Primary Care Provider] - 1 Week Alisson Anaya DO [Physician] -
[2016-10-02 12:30] VITALS: BP 157/92
== END 2016-10-02 13:46 | disposition swing bed (61) | DRG 313 ==
LOC: EDBD → EDUNIT# → N.ED 12:14 → N.EDINP 16:48 → SUATTDRO 16:48 → N.EDINP 18:15 → N.TELEN 18:39
PROVIDERS: ADMIT Emergency Medicine; ATTEND Internal Medicine